=== PATIENT | female | born 1950 | race Caucasian/White ===

== ENCOUNTER 2020-06-18 08:20 | Day surgery (SDC) | payer MEDICARE, OTHER, SELFPAY ==
[2020-06-11 15:53] VITALS: BMI 31.3
--- NOTE | 2020-06-13 08:14 | MHC.SHP ---
Pre-Procedural Eval Section A The patient is an INPATIENT: No The History & Physical has been completed within 30 days and I have reviewed it.: Yes Section B Chief Complaint: Left Eye Cataract Allergies: Allergies Allergy/AdvReac Type Severity Reaction Status Date / Time cephalexin [From KEFLEX] Allergy Unknown SPACEY, Verified 06/11/20 15:52 dizzy, lightheaded Penicillins [PENICILLINS] Allergy Unknown Unknown, Verified 06/11/20 15:52 childhood occurrence Plan Diagnosis/Plan: Unchanged Patient has been examined and remains a candidate for the planned procedure
[2020-06-18 08:55] VITALS: BP 141/80; PULSE 84; RESP 16; TEMP 36.1; O2SAT 95
[2020-06-18] MEDS: Tetracaine HCl/PF 0.5% Oph Sol 4 ML DROPS 1 DROP EYE-LEFT (09:06)
[2020-06-18] MEDS: Lactated Ringers 500 ML 50 ML IV (09:06)
[2020-06-18] MEDS: Tropicamide 1 % Ophth Sol 3 ML BTL 1 DROP EYE-LEFT ×3 (09:08→09:17)
--- NOTE | 2020-06-18 09:17 | HO.ANESPROP2 ---
[facility] Past Medical History Medical History Arthritis Back pain Elevated cholesterol GERD (gastroesophageal reflux disease) Family History Family History Father Osteoporosis Heart disease Diabetes mellitus HTN (hypertension) CVD (cardiovascular disease) Mother Diabetes mellitus Surgical History Surgical History Deviated septum H/O right knee surgery History of cystoscopy History of esophagogastroduodenoscopy (EGD) History of tonsillectomy History of tumor Hx of colonoscopy Social History Social History Are you a primary special needs child caregiver to a significant other at home: No Do you presently have visiting nurse or other home services: No Alcohol intake: never Smoking Status: Never smoker Second Hand Smoke Exposure: No Use of substances other than those prescribed or required for medical reasons: No Have you been hit, kicked, punched, or otherwise hurt by someone within the past year? If so, by whom?: No Advance Directives: No Advance Directives Information Provided: No Advance Directives on File: No Recently lost weight without trying: No Meds Allergies Allergy/AdvReac Type Severity Reaction Status Date / Time cephalexin [From KEFLEX] Allergy Unknown SPACEY, Verified 06/11/20 15:52 dizzy, lightheaded Penicillins [PENICILLINS] Allergy Unknown Unknown, Verified 06/11/20 15:52 childhood occurrence Home Medications Medication Instructions Recorded Confirmed Type aspirin 81 mg tablet,delayed 81 mg PO DAILY 06/12/20 06/12/20 History release atorvastatin 20 mg tablet 20 mg PO DAILY 06/12/20 06/12/20 History flu vacc [id number](65yr up)-PF 240 ml IM 06/12/20 06/12/20 History mcg/0.7 mL intramuscular syringe ibuprofen 200 mg tablet 400 mg PO Q8H 06/12/20 06/12/20 History omega-3 fatty acids-vitamin E PO 06/12/20 06/12/20 History omeprazole 20 mg capsule,delayed 20 mg PO DAILY 06/12/20 06/12/20 History release Exam Exam Date and Time: June 18, [id number] Height,Weight and Vital Signs: Height 4 ft 11 in Weight 70.307 kg Last Vital Signs Temp 97.0 F 06/18/20 08:55 Pulse 84 06/18/20 08:55 Resp 16 06/18/20 08:55 BP 141/80 H 06/18/20 08:55 Pulse Ox 95 06/18/20 08:55 Airway Mallampati Class: II (Caps laterally) TM Dist: >3cm Heart: RRR Lungs: CTA BL Assessment and Plan Assessment Anesthesia Assessment: Anesthesia Plan Discussed and Chart Reviewed Final Anesthetic Review NPO: Yes (Sip water with meds) Final Preanesthetic Review: No Changes in Pt Med Stat and Consent Obtained/Reviewed Patient Risk: Low Procedure Risk: Low Anesthetic Plan Anesthetic Plan: MAC: Disposition: Standard PACU
--- NOTE | 2020-06-18 10:36 | HO.PNOPHT ---
Ophthalmology Procedure Procedure Date of Service: 06/18/20 Ophthalmology Viscoelastic: Healon Duet Dual Pack Pro Ophthalmology Lenses: TECVICENTA [id number] (23) Procedure Notes: PREOPERATIVE DIAGNOSIS: Decreased visual acuity left eye secondary to cataract POSTOPERATIVE DIAGNOSIS: Same PROCEDURE: Left cataract extraction with intraocular lens insertion SURGEON: Jet Samayoa M.D. ANESTHESIA: Topical/MAC ESTIMATED BLOOD LOSS: None COMPLICATIONS: None After obtaining informed consent, the patient was brought to the operation room suite and placed in the supine position. After adequate sedation per anesthesia, topical drops of Tetracaine were given to the left eye. The eye was then prepped and draped in the usual sterile fashion. The operating room microscope was then positioned over the operative eye and a lid speculum placed. A paracentesis was created. Viscoelastic was then instilled into the anterior chamber. A three plane incision was then created temporally, utilizing a 2.85 mm keratome. Capsulotomy forceps were then utilized to create a circular tear capsulotomy. Hydrodissection and hydrodelineation were carried out until adequate mobilization of the nucleus occurred. Phacoemulsification was then utilized to remove the dense central nucleus followed by removal of the cortical material utilizing the automated aspiration irrigation unit. Viscoat elastic was instilled into the posterior capsular bag followed by placement of a posterior chamber intraocular lens without difficulty. The residual Viscoat elastic was then removed utilizing the automated IA machine. The wound was check and found to be watertight. The patient tolerated the procedure well and the lid speculum was removed. Intracameral injection of Vigamox 0.1 mL followed by a subtenon injection of Kenalog-40 0.2 mL were administered. The patient will be seen in the a.m.
[2020-06-18 10:38] VITALS: BP 147/86; PULSE 80; RESP 18; TEMP 36.3; O2SAT 96
== END 2020-06-18 10:55 | disposition home or self-care (01) ==
PROVIDERS: PCP Internal Medicine; Visit Provider Ophthalmology
PROC: (CPT 66985; principal; 2020-06-18 10:20)
DX: H25.12 Age-related nuclear cataract, left eye (principal); H52.4 Presbyopia; Z83.511 Family history of glaucoma; E78.00 Pure hypercholesterolemia, unspecified; K21.9 Gastro-esophageal reflux disease without esophagitis; M19.90 Unspecified osteoarthritis, unspecified site; Z79.82 Long term (current) use of aspirin; Z79.899 Other long term (current) drug therapy; Z87.891 Personal history of nicotine dependence; Z88.0 Allergy status to penicillin; Z88.1 Allergy status to other antibiotic agents
CPT/HCPCS: 66984; J2250; J3010; J3300; V2632

== ENCOUNTER 2020-07-02 08:58 | Day surgery (SDC) | payer MEDICARE, OTHER, SELFPAY ==
[2020-06-11 15:57] VITALS: BMI 31.3
--- NOTE | 2020-06-25 14:33 | P.CONAN_ITS ---
Documented by User: Renetta Mckeon 06/25/20 14:34 HPI - Anesthesia Eval Consult details Narrative: 70yo F for Cataract Extraction 1st eye: Fent 25, Midaz 1 PMFSH Past Medical History Medical History Arthritis Back pain Elevated cholesterol GERD (gastroesophageal reflux disease) Family History Family History Father Osteoporosis Heart disease Diabetes mellitus HTN (hypertension) CVD (cardiovascular disease) Mother Diabetes mellitus Surgical History Surgical History Deviated septum H/O right knee surgery History of cystoscopy History of esophagogastroduodenoscopy (EGD) History of tonsillectomy History of tumor Hx of colonoscopy Social History Social History Are you a primary primary care sales representative to a significant other at home: No Do you presently have visiting nurse or other home services: No Alcohol intake: never Smoking Status: Never smoker Second Hand Smoke Exposure: No Use of substances other than those prescribed or required for medical reasons: No Have you been hit, kicked, punched, or otherwise hurt by someone within the past year? If so, by whom?: No Advance Directives: No Advance Directives Information Provided: No Advance Directives on File: No Recently lost weight without trying: No Meds Allergies Allergy/AdvReac Type Severity Reaction Status Date / Time cephalexin [From KEFLEX] Allergy Unknown SPACEY, Verified 06/11/20 15:52 dizzy, lightheaded Penicillins [PENICILLINS] Allergy Unknown Unknown, Verified 06/11/20 15:52 childhood occurrence Home Medications Medication Instructions Recorded Confirmed Type aspirin 81 mg tablet,delayed 81 mg PO DAILY 06/12/20 06/12/20 History release atorvastatin 20 mg tablet 20 mg PO DAILY 06/12/20 06/12/20 History flu vacc [id number](65yr up)-PF 240 ml IM 06/12/20 06/12/20 History mcg/0.7 mL intramuscular syringe ibuprofen 200 mg tablet 400 mg PO Q8H 06/12/20 06/12/20 History omega-3 fatty acids-vitamin E PO 06/12/20 06/12/20 History omeprazole 20 mg capsule,delayed 20 mg PO DAILY 06/12/20 06/12/20 History release Exam Exam Date and Time: June 25, 2020 1433 Height,Weight and Vital Signs: Height 4 ft 11 in Weight 70.307 kg Assessment and Plan Assessment Anesthesia Assessment: Chart Reviewed Documented by User: Court Coronel 07/02/20 10:01 [facility] Past Medical History Medical History Arthritis Back pain Elevated cholesterol GERD (gastroesophageal reflux disease) Family History Family History Father Osteoporosis Heart disease Diabetes mellitus HTN (hypertension) CVD (cardiovascular disease) Mother Diabetes mellitus Surgical History Surgical History Deviated septum H/O right knee surgery History of cystoscopy History of esophagogastroduodenoscopy (EGD) History of tonsillectomy History of tumor Hx of colonoscopy Social History Social History Are you a primary primary care sales representative to a significant other at home: No Do you presently have visiting nurse or other home services: No Alcohol intake: never Smoking Status: Never smoker Second Hand Smoke Exposure: No Use of substances other than those prescribed or required for medical reasons: No Have you been hit, kicked, punched, or otherwise hurt by someone within the past year? If so, by whom?: No Advance Directives: No Advance Directives Information Provided: No Advance Directives on File: No Recently lost weight without trying: No Meds Allergies Allergy/AdvReac Type Severity Reaction Status Date / Time cephalexin [From KEFLEX] Allergy Unknown SPACEY, Verified 06/11/20 15:52 dizzy, lightheaded Penicillins [PENICILLINS] Allergy Unknown Unknown, Verified 06/11/20 15:52 childhood occurrence Home Medications Medication Instructions Recorded Confirmed Type aspirin 81 mg tablet,delayed 81 mg PO DAILY 06/12/20 06/12/20 History release atorvastatin 20 mg tablet 20 mg PO DAILY 06/12/20 06/12/20 History flu vacc [id number](65yr up)-PF 240 ml IM 06/12/20 06/12/20 History mcg/0.7 mL intramuscular syringe ibuprofen 200 mg tablet 400 mg PO Q8H 06/12/20 06/12/20 History omega-3 fatty acids-vitamin E PO 06/12/20 06/12/20 History omeprazole 20 mg capsule,delayed 20 mg PO DAILY 06/12/20 06/12/20 History release Exam Airway Mallampati Class: II (Top caps) TM Dist: >3cm Neck ROM: Full Heart: RRR Lungs: CTA BL Assessment and Plan Assessment Anesthesia Assessment: Anesthesia Plan Discussed and Chart Reviewed Final Anesthetic Review NPO: Yes (Sip water with meds) ASA Class: II Final Preanesthetic Review: Meds/Allgs Chart Reviewed and Consent Obtained/Reviewed Patient Risk: Low Procedure Risk: Low Anesthetic Plan Anesthetic Plan: MAC: Disposition: Standard PACU
--- NOTE | 2020-06-26 13:10 | MHC.SHP ---
Pre-Procedural Eval Section A The patient is an INPATIENT: No The History & Physical has been completed within 30 days and I have reviewed it.: Yes Section B Chief Complaint: Right Eye Cataract Allergies: Allergies Allergy/AdvReac Type Severity Reaction Status Date / Time cephalexin [From KEFLEX] Allergy Unknown SPACEY, Verified 06/11/20 15:52 dizzy, lightheaded Penicillins [PENICILLINS] Allergy Unknown Unknown, Verified 06/11/20 15:52 childhood occurrence Plan Diagnosis/Plan: Unchanged Patient has been examined and remains a candidate for the planned procedure
[2020-07-02] MEDS: Tetracaine HCl/PF 0.5% Oph Sol 4 ML DROPS 1 DROP EYE-RIGHT (09:51)
[2020-07-02] MEDS: Tropicamide 1 % Ophth Sol 3 ML BTL 1 DROP EYE-RIGHT ×3 (09:53→10:01)
[2020-07-02] MEDS: Lactated Ringers 500 ML 50 ML IV (09:56)
--- NOTE | 2020-07-02 11:14 | HO.PNOPHT ---
Ophthalmology Procedure Procedure Date of Service: 07/02/20 Ophthalmology Viscoelastic: Healon Duet Dual Pack Pro Ophthalmology Lenses: TECVICENTA [id number] (23) Procedure Notes: PREOPERATIVE DIAGNOSIS: Decreased visual acuity right eye secondary to cataract POSTOPERATIVE DIAGNOSIS: Same PROCEDURE: Right cataract extraction with intraocular lens insertion SURGEON: Jet Samayoa M.D. ANESTHESIA: Topical/MAC ESTIMATED BLOOD LOSS: None COMPLICATIONS: None After obtaining informed consent, the patient was brought to the operating room suite and placed in the supine position. After adequate sedation per anesthesia, topical drops of Tetracaine were given to the right eye. The eye was then prepped and draped in the usual sterile fashion. The operating room microscope was then positioned over the operative eye and a lid speculum placed. A paracentesis was created. Viscoelastic was then instilled into the anterior chamber. A three plane incision was then created temporally, utilizing a 2.85 mm keratome. Capsulotomy forceps were then utilized to create a circular tear capsulotomy. Hydrodissection and hydrodelineation were carried out until adequate mobilization of the nucleus occurred. Phacoemulsification was then utilized to remove the dense central nucleus followed by removal of the cortical material utilizing the automated aspiration irrigation unit. Viscoelastic was instilled into the posterior capsular bag followed by placement of a posterior chamber intraocular lens without difficulty. The residual Viscoelastic was then removed utilizing the automated IA machine. The wound was checked and found to be watertight. The patient tolerated the procedure well and the lid speculum was removed. Intracameral injection of Vigamox 0.1 mL followed by a subtenon injection of Kenalog-40 0.2 mL were administered. The patient will be seen in the a.m.
[2020-07-02 11:15] VITALS: BP 137/83; PULSE 79; RESP 16; TEMP 36.5; O2SAT 96
== END 2020-07-02 11:27 | disposition home or self-care (01) ==
PROVIDERS: PCP Internal Medicine; Visit Provider Ophthalmology
PROC: (CPT 66985; principal; 2020-07-02 11:30)
DX: H25.11 Age-related nuclear cataract, right eye (principal); Z88.0 Allergy status to penicillin
CPT/HCPCS: 66984; J2250; J3010; J3300; V2632

== ENCOUNTER 2020-08-09 08:26 | Outpatient (REF) | payer MEDICARE, OTHER, SELFPAY ==
--- NOTE | 2020-08-09 08:32 | MM_ITS ---
EXAMINATION: MM SCREENING DIGITAL BREAST TOMOSYNTHESIS, BILATERAL CLINICAL INFORMATION: Screening. Asymptomatic. The lifetime risk of breast cancer based on the Tyrer-Cuzick Model is 3%. COMPARISON: Mammography: 08/04/2019, 07/16/2018, 07/10/2017 TECHNIQUE: Digital breast tomosynthesis is performed in both the craniocaudal and mediolateral oblique views along with computer-aided detection (CAD). Synthesized 2D images are generated from the tomosynthesis. FINDINGS: There are scattered areas of fibroglandular density (ACR BI-RADS breast composition Category b). There are no significant masses, abnormal calcifications, or other abnormalities. No significant changes. MM/MM tomosynthesis screening BI IMPRESSION: No mammographic evidence of malignancy. ASSESSMENT: BI-RADS 1: Negative RECOMMENDATION: Routine annual mammography screening. This patient's information was entered into a reminder system with a target due date for their next mammogram.
== END 2020-08-09 08:27 | disposition home or self-care (01) ==
LOC: HO.MAMMO 08:26
PROVIDERS: PCP Internal Medicine; Visit Provider Internal Medicine
DX: Z12.31 Encounter for screening mammogram for malignant neoplasm of breast (principal)
CPT/HCPCS: 77063; 77067

== ENCOUNTER 2020-09-06 09:12 | Outpatient (REF) | payer MEDICARE, OTHER, SELFPAY ==
[2020-09-06 10:32] LABS: Alanine Aminotransferase 24 U/L (0-31); Alkaline Phosphatase 123 U/L (39-117); Aspartate Amino Transferase 22 U/L (5-31); Bilirubin Direct 0.3 mg/dL (0.0-0.5); Bilirubin Total 0.8 mg/dL (0.0-1.0); Cholesterol 177 mg/dL; HDL Cholesterol 55 mg/dL; LDL Cholesterol Calculated 103 mg/dl; Total Protein 6.7 g/dL (6.5-8.0); Triglycerides 98 mg/dL
== END 2020-09-06 09:13 | disposition home or self-care (01) ==
LOC: HO.LAB 09:12
PROVIDERS: PCP Internal Medicine; Visit Provider Internal Medicine
DX: E78.9 Disorder of lipoprotein metabolism, unspecified (principal)
CPT/HCPCS: 36415; 80061; 80076

== ENCOUNTER 2020-11-16 10:50 | Outpatient (REF) | payer MEDICARE, OTHER, SELFPAY ==
--- NOTE | ~2020-11-16 | MM_ITS ---
EXAMINATION: BONE DENSITOMETRY CLINICAL INDICATION: Other specified disorders of bone density and structure, unspecified site. COMPARISON: Previous BD dated 10/21/2013 and baseline BD dated 11/16/2009. TECHNIQUE: Using a Volta DXA System (software version: 13.1) manufactured by [employer], dual-energy x-ray absorptiometry was performed of the lumbar spine and left hip. The images are of good technical quality. Summary results are attached. FINDINGS: AP SPINE L1-L3 (excluding L4): The data of L1-L4 has been changed to exclude the L4 vertebral body, because degenerative changes at this level may cause overestimation of lumbar spine density. Current: BMD 0.970 g/cm2, Z-score -0.2, T-score -1.7, osteopenia, 3.5% decrease from previous, 6.1% decrease from baseline (<5% change is not significant). Prior: BMD 1.005 g/cm2. Baseline: BMD 1.033 g/cm2. LEFT FEMUR, NECK: Current: BMD 0.748 g/cm2, Z-score -0.6, T-score -2.1, osteopenia. Prior: BMD 0.833 g/cm2. Baseline: BMD 0.813 g/cm2. LEFT FEMUR, TOTAL: Current: BMD 0.910 g/cm2, Z-score 0.5, T-score -0.8, normal, 7.8% decrease from previous, 6.9% decrease from baseline (<5% change is not significant). Prior: BMD 0.987 g/cm2. Baseline: BMD 0.977 g/cm2. IDENTIFIED RISK FACTORS: Low calcium intake. Early menopause, secondary osteoporosis. HISTORY OF FRACTURE: None listed. MEDICATIONS: None listed. MM/XR DEXA axial skeleton IMPRESSION: 1. DIAGNOSIS: Osteopenia based on the lowest T-score value of -2.1 in the femoral neck applying World Health Organization criteria. 2. 10-YEAR FRACTURE RISK PREDICTION, FRAX: Major osteoporotic fracture (clinical spine, forearm, hip or shoulder) 11.6%. Hip fracture 2.2%. 3. Treatment Recommendations: NOF guidelines recommend consideration for treatment in postmenopausal women and men age 50 and older presenting with the following: -A hip or vertebral (clinical or morphometric) fracture. -T-score less than or equal to -2.5 at the femoral neck or spine after appropriate evaluation to exclude secondary causes. -Low bone mass at the hip or spine and a 10-year fracture probability by FRAX of greater than or equal to 3% for hip fracture or greater than or equal to 20% for major osteoporotic fracture based on the [place] adapted WHO algorithm. 4. Other Recommendations: All treatment decisions require clinical judgment and consideration of individual patient factors, including patient preferences, comorbidities, previous drug use, risk factors not captured in the FRAX model (e.g. frailty, falls, vitamin D deficiency, increased bone turnover, interval significant decline in bone density) and possible under or overestimation of fracture risk by FRAX. Additional medical evaluation for secondary cause of low bone mineral density may be appropriate. FUTURE SCAN RECOMMENDATION: People with diagnosed cases of osteoporosis or at high risk for fracture should have regular bone mineral density tests. For patients eligible for Medicare, routine testing is allowed once every 2 years. The testing frequency can be increased to one year for patients who have rapidly progressing disease, those who are receiving or discontinuing medical therapy to restore bone mass, or have additional risk factors.
== END 2020-11-16 10:51 | disposition home or self-care (01) ==
LOC: HO.MAMMO 10:50
PROVIDERS: Visit Provider Internal Medicine
DX: Z13.820 Encounter for screening for osteoporosis (principal); M85.80 Other specified disorders of bone density and structure, unspecified site; Z78.0 Asymptomatic menopausal state
CPT/HCPCS: 77080

== ENCOUNTER 2021-04-02 09:51 | Outpatient (REF) | payer MEDICARE, OTHER, SELFPAY ==
[2021-04-02 10:55] LABS: Alanine Aminotransferase 32 U/L (0-31); Alkaline Phosphatase 136 U/L (39-117); Anion Gap 11 (12-20); Aspartate Amino Transferase 32 U/L (5-31); Blood Urea Nitrogen 16 mg/dL (9-16); Calcium 9.7 mg/dL (8.4-10.2); Carbon Dioxide 26 mmol/L (22-29); Chloride 109 mmol/L (96-108); Cholesterol 173 mg/dL; Estimated Glomerular Filt Rate > 60; Glucose Fasting 88 mg/dL (60-99); HDL Cholesterol 56 mg/dL; LDL Cholesterol Calculated 97 mg/dl; Potassium 4.6 mmol/L (3.3-5.1); Sodium 141 mmol/L (135-145); Total Protein 6.8 g/dL (6.5-8.0); Triglycerides 100 mg/dL
== END 2021-04-02 09:52 | disposition home or self-care (01) ==
LOC: HO.LAB 09:51
PROVIDERS: PCP Internal Medicine; Visit Provider Internal Medicine
DX: E78.9 Disorder of lipoprotein metabolism, unspecified (principal)
CPT/HCPCS: 36415; 80053; 80061

== ENCOUNTER 2021-08-19 14:00 | Outpatient (REF) | payer MEDICARE, OTHER, SELFPAY ==
[2021-08-19 14:50] LABS: COVID-19 Test Negative (Negative)
== END 2021-08-19 14:01 | disposition home or self-care (01) ==
LOC: HO.LAB 14:00
PROVIDERS: Visit Provider Internal Medicine
DX: Z20.822 Contact with and (suspected) exposure to COVID-19 (principal)
CPT/HCPCS: 87635; C9803

== ENCOUNTER 2021-09-18 13:51 | Outpatient (REF) | payer MEDICARE, OTHER, SELFPAY ==
--- NOTE | ~2021-09-18 | MM_ITS ---
EXAMINATION: MM SCREENING DIGITAL BREAST TOMOSYNTHESIS, BILATERAL CLINICAL INFORMATION: Screening. Asymptomatic. The lifetime risk of breast cancer based on the Tyrer-Cuzick Model is 3%. COMPARISON: Mammography: 08/09/2020, 08/04/2019, 07/16/2018 TECHNIQUE: Digital breast tomosynthesis is performed in both the craniocaudal and mediolateral oblique views along with computer-aided detection (CAD). Synthesized 2D images are generated from the tomosynthesis. FINDINGS: There are scattered areas of fibroglandular density (ACR BI-RADS breast composition Category b). There are no significant masses, abnormal calcifications, or other abnormalities. Parenchymal pattern is similar to prior studies. There is no developing density or architectural abnormality. The axilla and skin contours are unremarkable. No significant changes. MM/MM tomosynthesis screening BI IMPRESSION: No mammographic evidence of malignancy. ASSESSMENT: BI-RADS 1: Negative RECOMMENDATION: Routine annual mammography screening. This patient's information was entered into a reminder system with a target due date for their next mammogram.
== END 2021-09-18 13:52 | disposition home or self-care (01) ==
LOC: HO.MAMMO 13:51
PROVIDERS: Visit Provider Internal Medicine
DX: Z12.31 Encounter for screening mammogram for malignant neoplasm of breast (principal)
CPT/HCPCS: 77063; 77067

== ENCOUNTER 2021-10-11 10:30 | Outpatient (REF) | payer MEDICARE, OTHER, SELFPAY ==
[2021-10-11 12:28] LABS: Alanine Aminotransferase 39 U/L (0-31); Albumin Level 4.2 g/dL (3.5-5.0); Alkaline Phosphatase 152 U/L (39-117); Aspartate Amino Transferase 34 U/L (5-31); Bilirubin Direct 0.3 mg/dL (0.0-0.5); Bilirubin Total 0.8 mg/dL (0.0-1.0); Total Protein 7.4 g/dL (6.5-8.0)
== END 2021-10-11 10:31 | disposition home or self-care (01) ==
LOC: HO.HMGCLDS 10:30
PROVIDERS: Visit Provider Internal Medicine
DX: E78.9 Disorder of lipoprotein metabolism, unspecified (principal); K76.0 Fatty (change of) liver, not elsewhere classified
CPT/HCPCS: 36415; 80076

== ENCOUNTER 2021-12-02 09:10 | Outpatient (REF) | payer MEDICARE, OTHER, SELFPAY ==
--- NOTE | ~2021-12-02 | XR_ITS ---
EXAMINATION: XR SHOULDER, RIGHT CLINICAL INFORMATION: Right shoulder pain. COMPARISON: None TECHNIQUE: Four views of the right shoulder. FINDINGS: Moderate diffuse osteopenia. No fracture. Glenohumeral and acromioclavicular alignment is anatomic with normal joint space. No abnormal soft tissue calcifications. XR/XR shoulder RT min 2V IMPRESSION: Moderate diffuse osteopenia. No radiographic evidence of any acute fracture, subluxation, dislocation or soft tissue calcifications.
== END 2021-12-02 09:11 | disposition home or self-care (01) ==
LOC: HO.HMGCX 09:10
PROVIDERS: Visit Provider Emergency Medicine
DX: M25.511 Pain in right shoulder (principal)
CPT/HCPCS: 73030

== ENCOUNTER → 2021-12-06 11:44 | Outpatient (BNVA) | payer MEDICARE, OTHER, SELFPAY | PROVIDERS: PCP Internal Medicine; Visit Provider Orthopaedic Surgery | DX: M75.51 Bursitis of right shoulder (principal) | CPT/HCPCS: 99202 ==

== ENCOUNTER 2022-04-16 10:02 | Outpatient (REF) | payer MEDICARE, OTHER, SELFPAY ==
[2022-04-16 11:18] LABS: MANUAL DIFF FLAG NO
[2022-04-16 11:38] LABS: Basophils Absolute Auto 0.1 X10*3/uL (0.0-0.2); Basophils Percent Auto 1.5 % (0-2); Eosinophils Absolute Auto 0.4 X10*3/uL (0.0-0.4); Eosinophils Percent Auto 4.3 % (0-4); Hematocrit 44.7 % (37.0-47.0); Hemoglobin 14.4 g/dl (12.0-16.0); Imm Gran Abs Auto 0.02 X10*3/uL (0.00-0.03); Imm Gran Pct Auto 0.2 % (0.0-0.4); Lymphocytes Absolute Auto 1.9 X10*3/uL (1.2-4.9); Lymphocytes Percent Auto 21.4 % (20-40); Mean Corpuscular HGB Conc 32.2 g/dl (31.0-35.0); Mean Corpuscular Hemoglobin 28.3 pg (27.0-33.0); Mean Platelet Volume 10.5 fL (9.4-12.3); Monocytes Absolute Auto 0.8 X10*3/uL (0.1-1.2); Monocytes Percent Auto 9.3 % (2-11); Neutrophils Absolute Auto 5.6 x10*3/uL (2.0-8.3); Neutrophils Percent Auto 63.3 % (45-73); Platelet Count 436 X10*3/uL (160-400); Red Blood Count 5.08 X10*6/uL (4.20-5.50); Red Cell Distribution Width 13.2 % (11.0-16.0); White Blood Count 8.8 X10*3/uL (4.8-10.8)
[2022-04-16 14:34] LABS: Alanine Aminotransferase 36 U/L (0-31); Albumin Level 4.1 g/dL (3.5-5.0); Alkaline Phosphatase 153 U/L (39-117); Anion Gap 15 (12-20); Aspartate Amino Transferase 33 U/L (5-31); Bilirubin Total 0.4 mg/dL (0.0-1.0); Blood Urea Nitrogen 14 mg/dL (9-16); Calcium 9.6 mg/dL (8.4-10.2); Carbon Dioxide 25 mmol/L (22-29); Chloride 107 mmol/L (96-108); Cholesterol 190 mg/dL; Estimated Glomerular Filt Rate > 60; Glucose Fasting 94 mg/dL (60-99); HDL Cholesterol 56 mg/dL; LDL Cholesterol Calculated 115 mg/dl; Potassium 4.6 mmol/L (3.3-5.1); Sodium 142 mmol/L (135-145); Total Protein 7.1 g/dL (6.5-8.0); Triglycerides 97 mg/dL
[2022-04-16 14:51] LABS: TSH reflex Free T4 3.21 uIU/mL (0.32-4.0)
== END 2022-04-16 10:03 | disposition home or self-care (01) ==
LOC: HO.HMGCLDS 10:02
PROVIDERS: PCP Internal Medicine; Visit Provider Internal Medicine
DX: E78.9 Disorder of lipoprotein metabolism, unspecified (principal); H81.10 Benign paroxysmal vertigo, unspecified ear; K21.9 Gastro-esophageal reflux disease without esophagitis; R03.0 Elevated blood-pressure reading, without diagnosis of hypertension; Z91.09 Other allergy status, other than to drugs and biological substances
CPT/HCPCS: 36415; 80053; 80061; 84443; 85025

== ENCOUNTER 2022-10-01 08:42 | Outpatient (REF) | payer MEDICARE, OTHER, SELFPAY ==
--- NOTE | ~2022-10-01 | MM_ITS ---
EXAMINATION: MM SCREENING DIGITAL BREAST TOMOSYNTHESIS, BILATERAL CLINICAL INFORMATION: Screening. Asymptomatic. The lifetime risk of breast cancer based on the Tyrer-Cuzick Model is 3%. COMPARISON: Mammography: 09/18/2021, 08/09/2020, 08/04/2019, 07/16/2018 TECHNIQUE: Digital breast tomosynthesis is performed in both the craniocaudal and mediolateral oblique views along with computer-aided detection (CAD). Synthesized 2D images are generated from the tomosynthesis. Additional left MLO view is provided. FINDINGS: There are scattered areas of fibroglandular density (ACR BI-RADS breast composition Category b). There are no significant masses, abnormal calcifications, or other abnormalities. No architectural abnormality or developing density or significant change from prior studies. MM/MM tomosynthesis screening BI IMPRESSION: No mammographic evidence of malignancy. ASSESSMENT: BI-RADS 1: Negative RECOMMENDATION: Routine annual mammography screening. This patient's information was entered into a reminder system with a target due date for their next mammogram.
== END 2022-10-01 08:43 | disposition home or self-care (01) ==
LOC: HO.MAMMO 08:42
PROVIDERS: PCP Internal Medicine; Visit Provider Internal Medicine
DX: Z12.31 Encounter for screening mammogram for malignant neoplasm of breast (principal)
CPT/HCPCS: 77063; 77067

== ENCOUNTER → 2022-12-02 09:11 | Outpatient (BNVA) | payer MEDICARE, OTHER, SELFPAY | PROVIDERS: PCP Internal Medicine; Visit Provider Surgery Vascular Surgery | DX: I77.1 Stricture of artery (principal); I65.23 Occlusion and stenosis of bilateral carotid arteries | CPT/HCPCS: 99202 ==

== ENCOUNTER 2022-12-04 13:54 | Outpatient (REF) | payer MEDICARE, OTHER, SELFPAY ==
--- NOTE | ~2022-12-04 | US_ITS ---
EXAMINATION: US EXTRACRANIAL CAROTID DUPLEX, BILATERAL CLINICAL INFORMATION: Bilateral carotid stenoses. COMPARISON: None available. TECHNIQUE: Real-time ultrasound and Doppler techniques (integrating B-mode 2-D vascular images, Doppler spectral analysis and color-flow Doppler imaging) were utilized to interrogate the extracranial carotid arteries, the vertebral arteries and proximal subclavian arteries bilaterally. The degree of stenosis is determined by criteria similar to NASCET. FINDINGS: RIGHT SIDE: 1. There is minimal atherosclerotic plaque seen in the bifurcation/proximal ICA region. 2. The common carotid artery PSV proximally is 89 cm/s and distally 56 cm/s. 3. The proximal internal carotid artery velocities are 41 cm/s systolic and 14 cm/s diastolic. 4. The proximal external carotid artery PSV is 60 cm/s. 5. The vertebral artery shows antegrade flow. 6. The subclavian artery waveforms are normal. LEFT SIDE: 1. There is minimal atherosclerotic plaque seen in the bifurcation/proximal ICA region. 2. The common carotid artery PSV proximally is 96 cm/s and distally 60 cm/s. 3. The proximal internal carotid artery velocities are 49 cm/s systolic and 19 cm/s diastolic. 4. The proximal external carotid artery PSV is 56 cm/s. 5. The vertebral artery shows antegrade flow. 6. The subclavian artery waveforms are normal. US/US carotid duplex BI IMPRESSION: 1. RIGHT: Minimal, non-hemodynamically significant stenosis of the proximal right internal carotid artery corresponding to a 0-49% stenosis by velocity criteria. 2. LEFT: Minimal, non-hemodynamically significant stenosis of the proximal left internal carotid artery corresponding to a 0-49% stenosis by velocity criteria.
== END 2022-12-04 13:55 | disposition home or self-care (01) ==
LOC: HO.US 13:54
PROVIDERS: PCP Internal Medicine; Visit Provider Surgery Vascular Surgery
DX: I65.23 Occlusion and stenosis of bilateral carotid arteries (principal)
CPT/HCPCS: 93880

== ENCOUNTER 2022-12-16 09:04 | Outpatient (REF) | payer MEDICARE, OTHER, SELFPAY ==
[2022-12-16 11:10] LABS: MANUAL DIFF FLAG NO
[2022-12-16 11:38] LABS: Basophils Absolute Auto 0.1 X10*3/uL (0.0-0.2); Basophils Percent Auto 1.2 % (0-2); Eosinophils Absolute Auto 0.3 X10*3/uL (0.0-0.4); Eosinophils Percent Auto 3.6 % (0-4); Hematocrit 43.1 % (37.0-47.0); Hemoglobin 13.8 g/dl (12.0-16.0); Imm Gran Abs Auto 0.02 X10*3/uL (0.00-0.03); Imm Gran Pct Auto 0.2 % (0.0-0.4); Lymphocytes Absolute Auto 1.9 X10*3/uL (1.2-4.9); Lymphocytes Percent Auto 23.1 % (20-40); Mean Corpuscular Hemoglobin 28.5 pg (27.0-33.0); Mean Platelet Volume 10.7 fL (9.4-12.3); Monocytes Absolute Auto 0.8 X10*3/uL (0.1-1.2); Monocytes Percent Auto 9.2 % (2-11); Neutrophils Absolute Auto 5.1 x10*3/uL (2.0-8.3); Neutrophils Percent Auto 62.7 % (45-73); Platelet Count 426 X10*3/uL (160-400); Red Blood Count 4.84 X10*6/uL (4.20-5.50); Red Cell Distribution Width 13.5 % (11.0-16.0); White Blood Count 8.1 X10*3/uL (4.8-10.8)
[2022-12-16 11:51] LABS: Alanine Aminotransferase 24 U/L (0-31); Albumin Level 3.9 g/dL (3.5-5.0); Alkaline Phosphatase 113 U/L (39-117); Anion Gap 10 (12-20); Aspartate Amino Transferase 23 U/L (5-31); Bilirubin Total 0.8 mg/dL (0.0-1.0); Blood Urea Nitrogen 13 mg/dL (9-16); Calcium 9.5 mg/dL (8.4-10.2); Carbon Dioxide 27 mmol/L (22-29); Chloride 108 mmol/L (96-108); Cholesterol 181 mg/dL; Estimated Glomerular Filt Rate > 60; Glucose Fasting 98 mg/dL (60-99); HDL Cholesterol 58 mg/dL; LDL Cholesterol Calculated 104 mg/dl; Potassium 4.1 mmol/L (3.3-5.1); Sodium 141 mmol/L (135-145); Total Protein 6.7 g/dL (6.5-8.0); Triglycerides 97 mg/dL
== END 2022-12-16 09:05 | disposition home or self-care (01) ==
LOC: HO.HMGCLDS 09:04
PROVIDERS: PCP Internal Medicine; Visit Provider Internal Medicine
DX: E78.9 Disorder of lipoprotein metabolism, unspecified (principal); I10 Essential (primary) hypertension; K21.9 Gastro-esophageal reflux disease without esophagitis; R79.89 Other specified abnormal findings of blood chemistry; Z91.09 Other allergy status, other than to drugs and biological substances
CPT/HCPCS: 36415; 80053; 80061; 85025

== ENCOUNTER → 2022-12-18 15:06 | Outpatient (BNVA) | payer MEDICARE, OTHER, SELFPAY | PROVIDERS: PCP Internal Medicine; Visit Provider Surgery Vascular Surgery | DX: I77.1 Stricture of artery (principal); I65.23 Occlusion and stenosis of bilateral carotid arteries; Z79.82 Long term (current) use of aspirin; Z79.899 Other long term (current) drug therapy | CPT/HCPCS: 99212 ==

== ENCOUNTER 2023-04-07 09:07 | Outpatient (AMB) | payer MEDICARE, OTHER, SELFPAY ==
[2023-04-07 09:09] VITALS: BP 144/72; PULSE 83; O2SAT 98; BMI 33.7
--- NOTE | 2023-04-07 09:09 | MHC.PC.OV ---
Vital Signs 04/07/23 09:09 Height 4 ft 11 in Weight 167 lb BMI 33.7 BP 144/72 H Blood Pressure Location Rt brachial Position Sitting Pulse 83 Pulse Source Pulse Oximeter Pulse Oximetry (%) 98 Oxygen Delivery Method Room Air Intake Visit Reasons: 4 month follow up Allergies cephalexin [From KEFLEX] Allergy (Unknown, Verified 04/07/23 09:09) SPACEY, dizzy, lightheaded Penicillins [PENICILLINS] Allergy (Unknown, Verified 04/07/23 09:09) Unknown, childhood occurrence Medication List - Last Reconciled 04/07/23 by Nelson Brennan MD aspirin (Adult Aspirin Regimen) 81 mg PO DAILY atorvastatin 20 mg PO DAILY 90 days clobetasol 0.05% grams topical ibuprofen 400 mg PO Q8H losartan 25 mg PO DAILY 90 days omega-3 fatty acids-vitamin E ([place]-3 Fish Oil) PO omeprazole 20 mg PO DAILY 90 days Tobacco use date assessed: 04/07/23 Fall risk assessment: No Falls in past year Last assessed Fall Risk: 04/07/23 Dental Screening Dental Screen Date: 04/07/23 Did you have a dental visit in the last 12 months?: No Did you have a dental problem in the last 6 months where you did not have access to dental care?: No Was dental information given to patient?: No HPI 4 month follow up HPI Details Patient is 73-year-old female came in today for a follow-up appointment.? She is upset today because of our knee checking for process Blood pressure is slightly 144/72 right arm Vascular surgeon consultation from November of this year reviewed, patient have mild subclavian artery stenosis that is why her blood pressure is lower in left upper extremity and high in right upper extremity Patient was instructed to continue monitoring her blood pressure in right arm only. And she is to continue with aspirin and statin no other intervention is needed at this time. LFT elevation stable, we will be labs before next visit Lipid disorder:? Continue atorvastatin 20 mg and diet-controlled GERD is stable with omeprazole 20 mg. Continue aspirin BMI is elevated patient is trying to lose weight, we talked about intermittent fast patient also wanted to talk about liquid diet for 10 days I would recommend if she wants to do it she should start with only 3 days and then eat regular meals and then she can do another 3 or 5 days if she tolerates it. Follow-up 4 months [facility] Medical History Arthritis Back pain Dermatofibrosarcoma Elevated cholesterol GERD (gastroesophageal reflux disease) Surgical History Deviated septum H/O right knee surgery History of cystoscopy History of esophagogastroduodenoscopy (EGD) History of tonsillectomy History of tumor Hx of colonoscopy Family History Father Osteoporosis Heart disease Diabetes mellitus HTN (hypertension) CVD (cardiovascular disease) Mother Diabetes mellitus Other Substance use disorder Social History Housing: House Are you a primary health care / medical job titles to a significant other at home: No Do you presently have visiting nurse or other home services: No Alcohol intake: never Patient Tobacco Use Status: Former Tobacco user (50 years ago ) Years Smoked: 5 years e-Cigarette/Vaping Use: Never Used Second Hand Smoke Exposure: No service: No Current occupational status: retired Cognitive needs: No Hearing needs: Yes Vision needs: Yes Questionnaire PHQ-9 Over the last 2 weeks, how often have you been bothered by any of the following problems? 1. Little interest or pleasure in doing things: several days 2. Feeling down, depressed, or hopeless: several days 3. Trouble falling or staying asleep, or sleeping too much: several days 4. Feeling tired or having little energy: several days 5. Poor appetite or overeating: several days 6. Feeling bad about yourself - or that you are a failure or have let yourself or your family down: several days 7. Trouble concentrating on things, such as reading the newspaper or watching television: several days 8. Moving or speaking so slowly that other people could have noticed. Or the opposite - being so fidgety or restless that you have been moving around a lot more than usual: not at all 9. Thoughts that you would be better off or of hurting yourself in some way: not at all Total score: 7 Depression Screening Interpretation: Negative 01341 - PHQ-9 Billing: Yes Source: Developed by Drs. Genaro Kramer, Dustin Cadet and colleagues, with an educational shivani from [employer]. Thrive Questionnaire Date Thrive assessed: 10/11/21 AUDIT C Alcohol Use Questionnaire (AUDIT-C) 1. How often do you have a drink containing alcohol?: Never 3. How often do you have six or more drinks on one occasion?: Never Total Score: 0 Score Reviewed/Action Taken: Yes ANGELICA-7 AMB Questionnaire ANGELICA-7 Date ANGELICA - 7 assessed: 10/11/21 Source: Developed by Drs. Genaro Kramer, Dustin Cadet and colleagues, with an educational shivani from [employer]. Review of Systems Const Denies chills and Denies fever(s) ENT Denies epistaxis and Denies nasal discharge Card Denies chest pain Resp Denies chest congestion, Denies cough and Denies hemoptysis GI Denies diarrhea and Denies nausea Skin/Breast Denies rash Neuro Reports no additional complaints Psych Reports no additional complaints Endo Reports no additional complaints Physical exam (Primary Care) Vital Signs: Last Vital Signs Pulse 83 04/07/23 09:09 BP 144/72 H 04/07/23 09:09 Pulse Ox 98 04/07/23 09:09 Oxygen Delivery Method Room Air 04/07/23 09:09 BMI result Body Mass Index 33.7 Tobacco/Smoking Status: Tobacco use Status Tobacco use date assessed 04/07/23 04/07/23 09:15 Patient Tobacco Use Status Former Tobacco user (50 04/07/23 09:15 years ago ) e-Cigarette/Vaping Use Never Used 04/07/23 09:15 Depression Screening Interpretation: Negative Thrive Assessment: Date of Thrive Assessment Date Thrive assessed 10/11/21 04/07/23 09:15 Const General: cooperative, comfortable and no acute distress Orientation/consciousness: patient oriented x3 HENMT Head: Yes normocephalic Eyes General: appearance normal, both eyes and all related structures Neck Neck: Yes supple Resp Effort & Inspection: normal respiratory effort, no cough and no stridor Cardio Rhythm: regular rhythm Heart sounds: S1 normal heart sound present and S2 normal heart sound present Skin General skin exam: turgor normal Neuro General: patient oriented x3, tone normal and moves all extremities Extrem Right lower extremity: no edema Left lower extremity: no edema Assessment and Plan Assessment & Plan (1) Hypertension, essential: Code(s): I10 - Essential (primary) hypertension (2) Lipid disorder: Code(s): E78.9 - Disorder of lipoprotein metabolism, unspecified (3) Osteopenia: Code(s): M85.80 - Other specified disorders of bone density and structure, unspecified site (4) GERD (gastroesophageal reflux disease): Code(s): K21.9 - Gastro-esophageal reflux disease without esophagitis (5) Environmental allergies: Code(s): Z91.09 - Other allergy status, other than to drugs and biological substances (6) Subclavian arterial stenosis: Code(s): I77.1 - Stricture of artery (7) Peripheral artery disease: Code(s): I73.9 - Peripheral vascular disease, unspecified (8) LFT elevation: Code(s): R79.89 - Other specified abnormal findings of blood chemistry (9) Osteoarthritis: Code(s): M19.90 - Unspecified osteoarthritis, unspecified site Plan Patient is 73-year-old female came in today for a follow-up appointment.? She is upset today because of our knee checking for process Blood pressure is slightly 144/72 right arm Vascular surgeon consultation from November of this year reviewed, patient have mild subclavian artery stenosis that is why her blood pressure is lower in left upper extremity and high in right upper extremity Patient was instructed to continue monitoring her blood pressure in right arm only. And she is to continue with aspirin and statin no other intervention is needed at this time. LFT elevation stable, we will be labs before next visit Lipid disorder:? Continue atorvastatin 20 mg and diet-controlled GERD is stable with omeprazole 20 mg. Weight-bearing exercises for osteopenia She is taking ibuprofen every now and then for osteoarthritis in her joints Continue aspirin BMI is elevated patient is trying to lose weight, we talked about intermittent fast patient also wanted to talk about liquid diet for 10 days I would recommend if she wants to do it she should start with only 3 days and then eat regular meals and then she can do another 3 or 5 days if she tolerates it. Follow-up 4 months Orders: Orders Comprehensive [place]. Panel Fast Today E78.9 - Disorder of lipoprotein metabolism, unspecified, I10 - Essential (primary) hypertension, I73.9 - Peripheral vascular disease, unspecified, I77.1 - Stricture of artery, K21.9 - Gastro-esophageal reflux disease without esophagitis, M19.90 - Unspecified osteoarthritis, unspecified site, M85.80 - Other specified disorders of bone density and structure, unspecified site, R79.89 - Other specified abnormal findings of blood chemistry, Z91.09 - Other allergy status, other than to drugs and biological substances Lipid Panel Today E78.9 - Disorder of lipoprotein metabolism, unspecified, I10 - Essential (primary) hypertension, I73.9 - Peripheral vascular disease, unspecified, I77.1 - Stricture of artery, K21.9 - Gastro-esophageal reflux disease without esophagitis, M19.90 - Unspecified osteoarthritis, unspecified site, M85.80 - Other specified disorders of bone density and structure, unspecified site, R79.89 - Other specified abnormal findings of blood chemistry, Z91.09 - Other allergy status, other than to drugs and biological substances Complete Blood Count Auto Diff Today E78.9 - Disorder of lipoprotein metabolism, unspecified, I10 - Essential (primary) hypertension, I73.9 - Peripheral vascular disease, unspecified, I77.1 - Stricture of artery, K21.9 - Gastro-esophageal reflux disease without esophagitis, M19.90 - Unspecified osteoarthritis, unspecified site, M85.80 - Other specified disorders of bone density and structure, unspecified site, R79.89 - Other specified abnormal findings of blood chemistry, Z91.09 - Other allergy status, other than to drugs and biological substances Medications: Refilled atorvastatin 20 mg PO DAILY 90 tabs 1RF 90 days E78.9 - Disorder of lipoprotein metabolism, unspecified losartan 25 mg PO DAILY 90 tabs 1RF 90 days omeprazole 20 mg PO DAILY 90 caps 1RF 90 days Coding Level of Care Code Est Pt Level 4 (35290) Diagnoses Hypertension, essential I10 Lipid disorder E78.9 Osteopenia M85.80 GERD (gastroesophageal reflux disease) K21.9 Environmental allergies Z91.09 Subclavian arterial stenosis I77.1 Peripheral artery disease I73.9 LFT elevation R79.89 Osteoarthritis M19.90
== END 2023-04-07 10:32 | disposition home or self-care (01) ==
PROVIDERS: Visit Provider Internal Medicine
DX: I10 Essential (primary) hypertension (principal); K21.9 Gastro-esophageal reflux disease without esophagitis; Z91.09 Other allergy status, other than to drugs and biological substances; I77.1 Stricture of artery; I73.9 Peripheral vascular disease, unspecified; E78.9 Disorder of lipoprotein metabolism, unspecified; M85.80 Other specified disorders of bone density and structure, unspecified site; R79.89 Other specified abnormal findings of blood chemistry; M19.90 Unspecified osteoarthritis, unspecified site
CPT/HCPCS: 99214

== ENCOUNTER 2023-04-08 08:21 | Outpatient (REF) | payer MEDICARE, OTHER, SELFPAY ==
[2023-04-08 08:49] LABS: MANUAL DIFF FLAG NO
[2023-04-08 08:56] LABS: Basophils Absolute Auto 0.1 X10*3/uL (0.0-0.2); Basophils Percent Auto 0.9 % (0-2); Eosinophils Absolute Auto 0.3 X10*3/uL (0.0-0.4); Eosinophils Percent Auto 2.9 % (0-4); Hematocrit 42.6 % (37.0-47.0); Hemoglobin 13.8 g/dl (12.0-16.0); Imm Gran Abs Auto 0.02 X10*3/uL (0.00-0.03); Imm Gran Pct Auto 0.2 % (0.0-0.4); Lymphocytes Absolute Auto 1.7 X10*3/uL (1.2-4.9); Lymphocytes Percent Auto 18.4 % (20-40); Mean Corpuscular HGB Conc 32.4 g/dl (31.0-35.0); Mean Corpuscular Hemoglobin 28.5 pg (27.0-33.0); Mean Platelet Volume 9.8 fL (9.4-12.3); Monocytes Absolute Auto 1.1 X10*3/uL (0.1-1.2); Monocytes Percent Auto 11.5 % (2-11); Neutrophils Absolute Auto 6.1 x10*3/uL (2.0-8.3); Neutrophils Percent Auto 66.1 % (45-73); Platelet Count 374 X10*3/uL (160-400); Red Blood Count 4.84 X10*6/uL (4.20-5.50); Red Cell Distribution Width 13.4 % (11.0-16.0); White Blood Count 9.2 X10*3/uL (4.8-10.8)
[2023-04-08 09:45] LABS: Alanine Aminotransferase 26 U/L (0-31); Albumin Level 3.9 g/dL (3.5-5.0); Alkaline Phosphatase 140 U/L (39-117); Anion Gap 10 (12-20); Aspartate Amino Transferase 28 U/L (5-31); Bilirubin Total 0.6 mg/dL (0.0-1.0); Blood Urea Nitrogen 15 mg/dL (9-16); Calcium 9.6 mg/dL (8.4-10.2); Carbon Dioxide 26 mmol/L (22-29); Chloride 110 mmol/L (96-108); Cholesterol 174 mg/dL (<200); Estimated Glomerular Filt Rate > 60; Glucose Fasting 93 mg/dL (60-99); HDL Cholesterol 52 mg/dL (>40); LDL Cholesterol Calculated 104 mg/dL (<100); Potassium 4.1 mmol/L (3.3-5.1); Sodium 142 mmol/L (135-145); Total Protein 7.1 g/dL (6.5-8.0); Triglycerides 91 mg/dL (<150)
== END 2023-04-08 08:22 | disposition home or self-care (01) ==
LOC: HO.LAB 08:21
PROVIDERS: PCP Internal Medicine; Visit Provider Internal Medicine
DX: I10 Essential (primary) hypertension (principal); E78.9 Disorder of lipoprotein metabolism, unspecified; I73.9 Peripheral vascular disease, unspecified; I77.1 Stricture of artery; K21.9 Gastro-esophageal reflux disease without esophagitis; M19.90 Unspecified osteoarthritis, unspecified site; M85.80 Other specified disorders of bone density and structure, unspecified site; R79.89 Other specified abnormal findings of blood chemistry; Z91.09 Other allergy status, other than to drugs and biological substances
CPT/HCPCS: 36415; 80053; 80061; 85025

== ENCOUNTER 2023-05-12 09:10 | Day surgery (SDC) | payer MEDICARE, OTHER, SELFPAY ==
--- NOTE | 2023-05-08 11:21 | HO.ANESPROP2 ---
Documented by User: Renetta Mckeon NP 05/08/23 11:24 HPI - Anesthesia Eval Consult details Narrative: 73yo F for Colonoscopy PMFSH Active Problems Active Problems: All Active Problems (Updated 05/08/23 @ 11:14 by Juli Fuentes RN) Carotid stenosis, bilateral (Acute) Subclavian arterial stenosis (Acute) Peripheral artery disease (Acute) LFT elevation (Acute) Stress and adjustment reaction (Acute) Hypertension, essential (Acute) Elevated blood pressure reading (Acute) Subacromial bursitis of right shoulder joint (Acute) Arthritis (Acute) Benign positional vertigo (Acute) Lipid disorder (Acute) Encounter for general adult medical examination with abnormal findings (Acute) Fatty liver (Acute) Environmental allergies (Acute) Osteoarthritis (Acute) Osteopenia (Acute) Lipid disorder (Acute) Pre-op evaluation (Acute) GERD (gastroesophageal reflux disease) (Acute) Past Medical History Medical History Left arm pain HTN (hypertension) Diverticulosis Dermatofibrosarcoma Arthritis Back pain GERD (gastroesophageal reflux disease) Elevated cholesterol Family History Family History Father Osteoporosis Heart disease Diabetes mellitus HTN (hypertension) CVD (cardiovascular disease) Mother Diabetes mellitus Other Substance use disorder Surgical History Surgical History History of arthroscopy of left shoulder History of cystoscopy History of esophagogastroduodenoscopy (EGD) Hx of colonoscopy History of tumor Deviated septum History of tonsillectomy H/O right knee surgery Social History Social History Housing: House Are you a primary care team assistant to a significant other at home: No Do you presently have visiting nurse or other home services: No Alcohol intake: never Patient Tobacco Use Status: Former Tobacco user Years Smoked: 5 years e-Cigarette/Vaping Use: Never Used Second Hand Smoke Exposure: No Are you DNR?: No Advance Directives: No Advance Directives Information Provided: Yes Nutrition Risks: No Nutritional Risk service: No Current occupational status: retired Cognitive needs: No Hearing needs: Yes Vision needs: Yes Meds Allergies Allergy/AdvReac Type Severity Reaction Status Date / Time cephalexin [From KEFLEX] Allergy Unknown SPACEY, Verified 04/07/23 09:09 dizzy, lightheaded Penicillins [PENICILLINS] Allergy Unknown Unknown, Verified 04/07/23 09:09 childhood occurrence Home Medications Medication Instructions Recorded Confirmed Last Taken Type aspirin 81 mg tablet,delayed 81 mg PO DAILY 06/12/20 04/07/23 05/04/23 History release (Adult Aspirin Regimen) ibuprofen 200 mg tablet 400 mg PO Q8H 06/12/20 04/07/23 05/04/23 History omega-3 fatty acids-vitamin E PO 06/12/20 04/07/23 05/04/23 History [[place]-3 Fish Oil] clobetasol 0.05 % topical ointment g topical 08/19/22 04/07/23 Unknown History Exam Exam Date and Time: May 08, 2023 1121 Pertinent Lab Results Pertinent Lab Results: Laboratory Tests 04/08/23 08:48 WBC 9.2 Hgb 13.8 Hct 42.6 Plt Count 374 Sodium 142 Potassium 4.1 Chloride 110 H Carbon Dioxide 26 BUN 15 Creatinine 0.87 Narrative Narrative: US carotid duplex BI 12/2022 IMPRESSION: 1. RIGHT: Minimal, non-hemodynamically significant stenosis of the proximal right internal carotid artery corresponding to a 0-49% stenosis by velocity criteria. 2. LEFT: Minimal, non-hemodynamically significant stenosis of the proximal left internal carotid artery corresponding to a 0-49% stenosis by velocity criteria. Assessment and Plan Assessment Anesthesia Assessment: Chart Reviewed Documented by User: Severino Munson MD 05/12/23 11:20 [facility] Past Medical History Medical History Left arm pain HTN (hypertension) Diverticulosis Dermatofibrosarcoma Arthritis Back pain GERD (gastroesophageal reflux disease) Elevated cholesterol Family History Family History Father Osteoporosis Heart disease Diabetes mellitus HTN (hypertension) CVD (cardiovascular disease) Mother Diabetes mellitus Other Substance use disorder Family history of problems with anesthesia: No Surgical History Surgical History History of arthroscopy of left shoulder History of cystoscopy History of esophagogastroduodenoscopy (EGD) Hx of colonoscopy History of tumor Deviated septum History of tonsillectomy H/O right knee surgery History of Problems with Anesthesia: No Social History Social History Housing: House Are you a primary care team assistant to a significant other at home: No Do you presently have visiting nurse or other home services: No Alcohol intake: never Patient Tobacco Use Status: Former Tobacco user Years Smoked: 5 years e-Cigarette/Vaping Use: Never Used Second Hand Smoke Exposure: No Are you DNR?: No Advance Directives: No Advance Directives Information Provided: Yes Nutrition Risks: No Nutritional Risk service: No Current occupational status: retired Cognitive needs: No Hearing needs: Yes Vision needs: Yes Meds Allergies Allergy/AdvReac Type Severity Reaction Status Date / Time cephalexin [From KEFLEX] Allergy Unknown SPACEY, Verified 04/07/23 09:09 dizzy, lightheaded Penicillins [PENICILLINS] Allergy Unknown Unknown, Verified 04/07/23 09:09 childhood occurrence Home Medications Medication Instructions Recorded Confirmed Last Taken Type aspirin 81 mg tablet,delayed 81 mg PO DAILY 06/12/20 04/07/23 05/04/23 History release (Adult Aspirin Regimen) ibuprofen 200 mg tablet 400 mg PO Q8H 06/12/20 04/07/23 05/04/23 History omega-3 fatty acids-vitamin E PO 06/12/20 04/07/23 05/04/23 History [[place]-3 Fish Oil] clobetasol 0.05 % topical ointment g topical 08/19/22 04/07/23 Unknown History Exam Airway Mallampati Class: III TM Dist: >3cm Neck ROM: Full Loose/Missing/Broken Teeth: No Assessment and Plan Assessment Anesthesia Assessment: Anesthesia Plan Discussed Final Anesthetic Review Family History of Problems with Anesthesia: No History of Problems with Anesthesia: No NPO: Yes ASA Class: III Final Preanesthetic Review: No Changes in Pt Med Stat, Meds/Allgs Chart Reviewed, Consent Obtained/Reviewed and Anes Risks/Benef Reviewed Patient Risk: Intermediate Procedure Risk: Low Anesthetic Plan Anesthetic Plan: MAC: Disposition: Standard PACU
[2023-05-12 09:41] VITALS: BMI 31.7
[2023-05-12 09:48] VITALS: BP 154/87; PULSE 100; RESP 20; TEMP 36.6; O2SAT 98
--- NOTE | 2023-05-12 10:53 | MHC.SHP ---
Pre-Procedural Eval Section A Date of Service: 05/12/23 The patient is an INPATIENT: No Changes since office visit: No Cold of Flu in the past 2 weeks, No New Medical Problems, No Changes in Medication and No Patient answered all questions The History & Physical has been completed within 30 days and I have reviewed it.: Yes Section B Chief Complaint: screening Allergies: Allergies Allergy/AdvReac Type Severity Reaction Status Date / Time cephalexin [From KEFLEX] Allergy Unknown SPACEY, Verified 04/07/23 09:09 dizzy, lightheaded Penicillins [PENICILLINS] Allergy Unknown Unknown, Verified 04/07/23 09:09 childhood occurrence Plan I have reviewed the history and physical and performed a pertinent physical examination on my patient. No changes have occurred unless specified. Time Spent With Patient Time: Total time managing care of this patient today ____ minutes.
--- NOTE | 2023-05-12 11:24 | PM.OP ---
Brief Operative Note Date of Service: 05/12/23 Pre-op diagnosis: screening Post-op diagnosis: same Surgeon: Teodoro Garcia MD Anesthesia: MAC Was an Junior Estimator used for this Procedure?: No Estimated blood loss (mL): 2 Pathology: other Condition: stable Disposition: PACU
[2023-05-12 11:28] VITALS: BP 112/44; PULSE 86; RESP 18; TEMP 36.2; O2SAT 95
[2023-05-12 11:43] VITALS: BP 114/68; PULSE 76; RESP 18; TEMP 36.2; O2SAT 97
== END 2023-05-12 12:36 | disposition home or self-care (01) ==
PROVIDERS: PCP Internal Medicine; Visit Provider Internal Medicine Gastroenterology
PROC: 0DJD8ZZ Inspection of Lower Intestinal Tract, Via Natural or Artificial Opening Endoscopic (ICD-10-PCS; CPT 45378; principal; 2023-05-12 10:40)
DX: Z12.11 Encounter for screening for malignant neoplasm of colon (principal); K63.5 Polyp of colon; K57.30 Diverticulosis of large intestine without perforation or abscess without bleeding; K64.8 Other hemorrhoids; K62.89 Other specified diseases of anus and rectum; K21.9 Gastro-esophageal reflux disease without esophagitis; I10 Essential (primary) hypertension; M19.90 Unspecified osteoarthritis, unspecified site; J30.2 Other seasonal allergic rhinitis; Z79.899 Other long term (current) drug therapy; Z79.82 Long term (current) use of aspirin; Z88.8 Allergy status to other drugs, medicaments and biological substances; Z98.890 Other specified postprocedural states
CPT/HCPCS: 45385; 88305

== ENCOUNTER 2023-08-11 09:23 | Outpatient (AMB) | payer MEDICARE, OTHER, SELFPAY ==
[2023-08-11 09:35] VITALS: BP 128/76; PULSE 81; O2SAT 96; BMI 31.4
--- NOTE | 2023-08-11 09:35 | A.OFFPC_ITS ---
Vital Signs 08/11/23 09:35 Height 5 ft 0.5 in Weight 163 lb 4 oz BMI 31.4 BP 128/76 Blood Pressure Location Rt brachial Position Sitting Pulse 81 Pulse Source Pulse Oximeter Pulse Oximetry (%) 96 Oxygen Delivery Method Room Air Intake Visit Reasons: 4 month fu Allergies cephalexin [From KEFLEX] Allergy (Unknown, Verified 08/11/23 09:38) SPACEY, dizzy, lightheaded Penicillins [PENICILLINS] Allergy (Unknown, Verified 08/11/23 09:38) Unknown, childhood occurrence Medication List - Last Reconciled 08/11/23 by Nelson Brennan MD aspirin (Adult Aspirin Regimen) 81 mg PO DAILY atorvastatin 20 mg PO DAILY 90 days clobetasol 0.05% grams topical ibuprofen 400 mg PO Q8H losartan 25 mg PO DAILY 90 days omega-3 fatty acids-vitamin E ([place]-3 Fish Oil) PO omeprazole 20 mg PO DAILY 90 days Tobacco use date assessed: 08/11/23 Fall risk assessment: No Falls in past year Last assessed Fall Risk: 08/11/23 Dental Screening Dental Screen Date: 08/11/23 Did you have a dental visit in the last 12 months?: No Did you have a dental problem in the last 6 months where you did not have access to dental care?: No Was dental information given to patient?: No HPI 4 month fu HPI Details Patient is 73-year-old female came in today for a follow-up appointment.? Blood pressure is well controlled patient have mild subclavian artery stenosis that is why her blood pressure is lower in left upper extremity and high in right upper extremity Patient was instructed to continue monitoring her blood pressure in right arm only. And she is to continue with aspirin and statin no other intervention is needed at this time. She has been evaluated by vascular specialist already LFT elevation stable, labs to be done Lipid disorder:? Continue atorvastatin 20 mg and diet-controlled GERD is stable with omeprazole 20 mg. Weight-bearing exercises for osteopenia She is taking ibuprofen every now and then for osteoarthritis in her joints Continue aspirin BMI is elevated patient is trying to lose weight Follow-up 4 months [facility] Medical History Left arm pain HTN (hypertension) Diverticulosis Dermatofibrosarcoma Arthritis Back pain GERD (gastroesophageal reflux disease) Elevated cholesterol Surgical History History of arthroscopy of left shoulder History of cystoscopy History of esophagogastroduodenoscopy (EGD) Hx of colonoscopy History of tumor Deviated septum History of tonsillectomy H/O right knee surgery Family History Father Osteoporosis Heart disease Diabetes mellitus HTN (hypertension) CVD (cardiovascular disease) Mother Diabetes mellitus Other Substance use disorder Social History Housing: House Are you a primary child care lead teacher to a significant other at home: No Do you presently have visiting nurse or other home services: No Alcohol intake: never Patient Tobacco Use Status: Former Tobacco user Years Smoked: 5 years e-Cigarette/Vaping Use: Never Used Second Hand Smoke Exposure: No service: No Current occupational status: retired Cognitive needs: No Hearing needs: Yes Vision needs: Yes Questionnaire Thrive Questionnaire Date Thrive assessed: 10/11/21 AUDIT C Alcohol Use Questionnaire (AUDIT-C) 1. How often do you have a drink containing alcohol?: Never 3. How often do you have six or more drinks on one occasion?: Never Total Score: 0 Score Reviewed/Action Taken: Yes ANGELICA-7 AMB Questionnaire ANGELICA-7 Date ANGELICA - 7 assessed: 10/11/21 Source: Developed by Drs. Genaro Kramer, Cira Nino, Dustin Malagon and colleagues, with an educational shivani from [employer]. Review of Systems Const Denies chills and Denies fever(s) ENT Denies epistaxis and Denies nasal discharge Card Denies chest pain Resp Denies chest congestion, Denies cough and Denies hemoptysis GI Denies diarrhea and Denies nausea Skin/Breast Denies rash Neuro Reports no additional complaints Psych Reports no additional complaints Endo Reports no additional complaints Physical exam (Primary Care) Vital Signs: Last Vital Signs Pulse 81 08/11/23 09:35 BP 128/76 08/11/23 09:35 Pulse Ox 96 08/11/23 09:35 Oxygen Delivery Method Room Air 08/11/23 09:35 BMI result Body Mass Index 31.4 Tobacco/Smoking Status: Tobacco use Status Tobacco use date assessed 08/11/23 08/11/23 09:39 Patient Tobacco Use Status Former Tobacco user 08/11/23 09:37 e-Cigarette/Vaping Use Never Used 08/11/23 09:37 Thrive Assessment: Date of Thrive Assessment Date Thrive assessed 10/11/21 08/11/23 09:37 Const General: cooperative, comfortable and no acute distress Orientation/consciousness: patient oriented x3 HENMT Head: Yes normocephalic Eyes General: appearance normal, both eyes and all related structures Neck Neck: Yes supple Resp Effort & Inspection: normal respiratory effort, no cough and no stridor Cardio Rhythm: regular rhythm Heart sounds: S1 normal heart sound present and S2 normal heart sound present Skin General skin exam: turgor normal Neuro General: patient oriented x3, tone normal and moves all extremities Extrem Right lower extremity: no edema Left lower extremity: no edema Assessment and Plan Assessment & Plan (1) Hypertension, essential: Code(s): I10 - Essential (primary) hypertension (2) Peripheral artery disease: Code(s): I73.9 - Peripheral vascular disease, unspecified (3) LFT elevation: Code(s): R79.89 - Other specified abnormal findings of blood chemistry (4) Lipid disorder: Code(s): E78.9 - Disorder of lipoprotein metabolism, unspecified (5) Environmental allergies: Code(s): Z91.09 - Other allergy status, other than to drugs and biological substances (6) GERD (gastroesophageal reflux disease): Code(s): K21.9 - Gastro-esophageal reflux disease without esophagitis Qualifiers: Esophagitis presence: without esophagitis Qualified Code(s): K21.9 - Gastro-esophageal reflux disease without esophagitis (7) Osteopenia: Code(s): M85.80 - Other specified disorders of bone density and structure, unspecified site Qualifiers: Osteopenia location: unspecified Qualified Code(s): M85.80 - Other specified disorders of bone density and structure, unspecified site (8) Subclavian arterial stenosis: Code(s): I77.1 - Stricture of artery (9) Osteoarthritis: Code(s): M19.90 - Unspecified osteoarthritis, unspecified site Qualifiers: Osteoarthritis location: unspecified site Osteoarthritis type: primary Qualified Code(s): M19.91 - Primary osteoarthritis, unspecified site Plan Patient is 73-year-old female came in today for a follow-up appointment.? Blood pressure is well controlled patient have mild subclavian artery stenosis that is why her blood pressure is lower in left upper extremity and high in right upper extremity Patient was instructed to continue monitoring her blood pressure in right arm only. And she is to continue with aspirin and statin no other intervention is needed at this time. She has been evaluated by vascular specialist already LFT elevation stable, labs to be done Lipid disorder:? Continue atorvastatin 20 mg and diet-controlled GERD is stable with omeprazole 20 mg. Weight-bearing exercises for osteopenia She is taking ibuprofen every now and then for osteoarthritis in her joints Continue aspirin BMI is elevated patient is trying to lose weight Follow-up 4 months Orders: Orders Complete Blood Count Auto Diff Today E78.9 - Disorder of lipoprotein metabolism, unspecified, I10 - Essential (primary) hypertension, I73.9 - Peripheral vascular disease, unspecified, K21.9 - Gastro-esophageal reflux disease without esophagitis, R79.89 - Other specified abnormal findings of blood chemistry, Z91.09 - Other allergy status, other than to drugs and biological substances Comprehensive [place]. Panel Fast Today I10 - Essential (primary) hypertension, R79.89 - Other specified abnormal findings of blood chemistry Lipid Panel Today I10 - Essential (primary) hypertension, R79.89 - Other specified abnormal findings of blood chemistry Coding Level of Care Code Est Pt Level 4 (10475) Diagnoses Hypertension, essential I10 Peripheral artery disease I73.9 LFT elevation R79.89 Lipid disorder E78.9 Environmental allergies Z91.09 Gastroesophageal reflux disease without esophagitis K21.9 Esophagitis presence: without esophagitis Osteopenia, unspecified location M85.80 Osteopenia location: unspecified Subclavian arterial stenosis I77.1 Primary osteoarthritis, unspecified site M19.91 Osteoarthritis location: unspecified site Osteoarthritis type: primary
== END 2023-08-11 12:36 | disposition home or self-care (01) ==
PROVIDERS: PCP Internal Medicine; Visit Provider Internal Medicine
DX: I10 Essential (primary) hypertension (principal); I73.9 Peripheral vascular disease, unspecified; I77.1 Stricture of artery; R79.89 Other specified abnormal findings of blood chemistry; E78.9 Disorder of lipoprotein metabolism, unspecified; Z91.09 Other allergy status, other than to drugs and biological substances; K21.9 Gastro-esophageal reflux disease without esophagitis; M85.80 Other specified disorders of bone density and structure, unspecified site; M19.91 Primary osteoarthritis, unspecified site
CPT/HCPCS: 99214

== ENCOUNTER 2023-08-11 09:57 | Outpatient (REF) | payer MEDICARE, OTHER, SELFPAY ==
[2023-08-11 12:55] LABS: MANUAL DIFF FLAG NO
[2023-08-11 13:13] LABS: Basophils Absolute Auto 0.2 X10*3/uL (0.0-0.2); Basophils Percent Auto 1.6 % (0-2); Eosinophils Absolute Auto 0.5 X10*3/uL (0.0-0.4); Eosinophils Percent Auto 5.4 % (0-4); Hematocrit 41.1 % (37.0-47.0); Imm Gran Abs Auto 0.03 X10*3/uL (0.00-0.03); Imm Gran Pct Auto 0.3 % (0.0-0.4); Lymphocytes Percent Auto 21.8 % (20-40); Mean Corpuscular HGB Conc 31.6 g/dl (31.0-35.0); Mean Corpuscular Hemoglobin 28.3 pg (27.0-33.0); Mean Corpuscular Volume 89.5 fL (80.0-98.0); Mean Platelet Volume 10.5 fL (9.4-12.3); Monocytes Absolute Auto 0.8 X10*3/uL (0.1-1.2); Monocytes Percent Auto 8.9 % (2-11); Neutrophils Absolute Auto 5.8 x10*3/uL (2.0-8.3); Platelet Count 426 X10*3/uL (160-400); Red Blood Count 4.59 X10*6/uL (4.20-5.50); Red Cell Distribution Width 13.3 % (11.0-16.0); White Blood Count 9.3 X10*3/uL (4.8-10.8)
[2023-08-11 13:26] LABS: Alanine Aminotransferase 27 U/L (0-31); Albumin Level 3.8 g/dL (3.5-5.0); Alkaline Phosphatase 131 U/L (39-117); Anion Gap 10 (12-20); Aspartate Amino Transferase 25 U/L (5-31); Bilirubin Total 0.4 mg/dL (0.0-1.0); Blood Urea Nitrogen 13 mg/dL (9-16); Calcium 9.3 mg/dL (8.4-10.2); Carbon Dioxide 28 mmol/L (22-29); Chloride 109 mmol/L (96-108); Cholesterol 179 mg/dL (<200); Estimated Glomerular Filt Rate > 60; Glucose Fasting 92 mg/dL (60-99); HDL Cholesterol 49 mg/dL (>40); LDL Cholesterol Calculated 106 mg/dL (<100); Potassium 3.8 mmol/L (3.3-5.1); Sodium 143 mmol/L (135-145); Total Protein 6.9 g/dL (6.5-8.0); Triglycerides 122 mg/dL (<150)
== END 2023-08-11 09:58 | disposition home or self-care (01) ==
LOC: HO.HMGCLDS 09:57
PROVIDERS: PCP Internal Medicine; Visit Provider Internal Medicine
DX: R79.89 Other specified abnormal findings of blood chemistry (principal); I10 Essential (primary) hypertension; I73.9 Peripheral vascular disease, unspecified; E78.9 Disorder of lipoprotein metabolism, unspecified; Z91.09 Other allergy status, other than to drugs and biological substances; K21.9 Gastro-esophageal reflux disease without esophagitis
CPT/HCPCS: 36415; 80053; 80061; 85025

== ENCOUNTER 2023-10-26 10:15 | Outpatient (REF) | payer MEDICARE, OTHER, SELFPAY ==
--- NOTE | ~2023-10-26 | MM_ITS ---
EXAMINATION: MM SCREENING DIGITAL BREAST TOMOSYNTHESIS, BILATERAL CLINICAL INFORMATION: Screening. Asymptomatic. COMPARISON: Mammography: 10/01/2022, 09/18/2021, 08/09/2020, 08/04/2019, 07/16/2018 TECHNIQUE: Digital breast tomosynthesis is performed in both the craniocaudal and mediolateral oblique views along with computer-aided detection (CAD). Synthesized 2D images are generated from the tomosynthesis. FINDINGS: There are scattered areas of fibroglandular density (ACR BI-RADS breast composition Category b). There are no suspicious masses, suspicious grouped calcifications, or areas of architectural distortion in either breast. The parenchymal pattern is stable from prior exams. No axillary or skin abnormality. MM/MM tomosynthesis screening BI IMPRESSION: No mammographic evidence of malignancy. ASSESSMENT: BI-RADS BI-RADS 1 - Negative RECOMMENDATION: Routine annual mammography screening. 1 year F/U This examination should not preclude the clinical evaluation of a suspicious palpable abnormality. This patient's information was entered into a reminder system with a target due date for their next mammogram.
== END 2023-10-26 10:16 | disposition home or self-care (01) ==
LOC: HO.MAMMO 10:15
PROVIDERS: PCP Internal Medicine; Visit Provider Internal Medicine
DX: Z12.31 Encounter for screening mammogram for malignant neoplasm of breast (principal)
CPT/HCPCS: 77063; 77067

== ENCOUNTER → 2023-10-26 10:45 | Outpatient (BNV) | payer MEDICARE, OTHER, SELFPAY | PROVIDERS: PCP Internal Medicine; Visit Provider Radiology Diagnostic Radiology | DX: Z12.31 Encounter for screening mammogram for malignant neoplasm of breast (principal) | CPT/HCPCS: 77063; 77067 ==

== ENCOUNTER 2023-12-29 12:17 | Outpatient (AMB) | payer MEDICARE, OTHER, SELFPAY ==
[2023-12-29 12:29] VITALS: BP 130/72; PULSE 81; O2SAT 95; BMI 31.3
--- NOTE | 2023-12-29 12:29 | A.OFFVIS_ITS ---
Intake Vital Signs 12/29/23 12:29 Height 5 ft 0.5 in Weight 163 lb 2 oz BMI 31.3 BP 130/72 Blood Pressure Location Rt brachial Position Sitting Pulse 81 Pulse Source Pulse Oximeter Pulse Oximetry (%) 95 Oxygen Delivery Method Room Air Intake Visit Reasons: SWV Allergies cephalexin [From KEFLEX] Allergy (Unknown, Verified 12/29/23 12:33) SPACEY, dizzy, lightheaded Penicillins [PENICILLINS] Allergy (Unknown, Verified 12/29/23 12:33) Unknown, childhood occurrence Medication List - Last Reconciled 12/29/23 by Nelson Brennan MD aspirin (Adult Aspirin Regimen) 81 mg PO DAILY atorvastatin 20 mg PO DAILY 90 days clobetasol 0.05% grams topical ibuprofen 400 mg PO Q8H losartan 25 mg PO DAILY 90 days omega-3 fatty acids-vitamin E ([place]-3 Fish Oil) PO omeprazole 20 mg PO DAILY 90 days Do you need a note to return to daycare/school/sports/work: No HPI SWV HPI Details Patient is 73-year-old female with a history of lipid disorder, hypertension, GERD, carotid artery stenosis, subclavian artery stenosis, peripheral vascular disease, LFT, hypertension, osteopenia, environmental allergies and multiple joint osteoarthritis came in today for her regular follow-up appointment and Medicare wellness visit Patient has been doing well, taking all her medications No side effects Labs were done August of this year, due for another set of lab, order placed to be done today Follow-up 4 months HPI Comments History of Present Illness Details AWV Medical/social history reviewed Past medical history reviewed [place] of care / care team list updated Surgical/ hospitalization history reviewed Current medications including OTC and supplements reviewed Family history reviewed Tobacco controlled form updated Alcohol use form updated Illicit drug use in social history reviewed Current diagnosis of depression ?screening updated Appropriate PHQ 2/PHQ-9 completed . Vital signs reviewed Alcohol tobacco drug use reviewed and discussed . MMSE completed . ? Fall risk: ?Assessed Fall history: ?None Have you had any falls with injury in the past year?? No Have you had 2 or more falls in the past year?? No Fall risk assessment completed Home safety discussed with the patient Functional ability assessed and discussed and documented Activities of daily living reviewed and appropriate actions taken . HRA filled out by the patient and reviewed by provider and scanned . Appropriate written screening schedule established . Any health advise needed provided . Advance care planning discussed with the patient , necessary paperwork filled Examination IPPE/AWE: Balance intact Romberg intact Tandem walk intact walk-in turn intact rise from sit to stand intact . ?Hearing ?whisper test failed . Medication list reviewed, patient is stable on medications All other providers patient is seeing discussed and noted . [facility] Medical History Left arm pain HTN (hypertension) Diverticulosis Dermatofibrosarcoma Arthritis Back pain GERD (gastroesophageal reflux disease) Elevated cholesterol Surgical History History of arthroscopy of left shoulder History of cystoscopy History of esophagogastroduodenoscopy (EGD) Hx of colonoscopy History of tumor Deviated septum History of tonsillectomy H/O right knee surgery Family History Father Osteoporosis Heart disease Diabetes mellitus HTN (hypertension) CVD (cardiovascular disease) Mother Diabetes mellitus Other Substance use disorder Social History Housing: House Are you a primary care consultant to a significant other at home: No Do you presently have visiting nurse or other home services: No Alcohol intake: never Patient Tobacco Use Status: Former Tobacco user Years Smoked: 5 years e-Cigarette/Vaping Use: Never Used Second Hand Smoke Exposure: No service: No Current occupational status: retired Cognitive needs: No Hearing needs: Yes Vision needs: Yes Questionnaire Medicare Wellness Checkup [age] What gender do you identify with?: female During the past 4 weeks, how much have you been bothered by emotional problems s uch as feeling anxious, depressed, irritable, sad or downhearted, and blue?: slightly During the past 4 weeks, has your physical & emotional health limited your social activities with family, friends, neighbors, or groups?: not at all During the past 4 weeks, how much bodily pain have you generally had?: mild pain During the past 4 weeks, was someone available to help you if you needed & wanted help?: yes, quite a bit During the past 4 weeks, what was the hardest physical activity you could do for at least 2 minutes?: heavy Can you get to places out of walking distance without help? (For eg., can you travel alone on buses, taxis or drive your car?): Yes Can you go shopping for groceries or clothes without someone's help?: Yes Can you prepare your own meals?: Yes Can you do your housework without help?: Yes Because of any health problems, do you need the help of another person with your personal care needs such as eating, bathing, dressing or getting around the house?: No Can you handle your own money without help?: Yes During the past 4 weeks, how would you rate your health in general?: very good During the past 4 weeks how have things been going for you?: pretty well Are you having difficulties driving your car?: sometimes Do you always fasten your seat belt when you are in a car?: yes, usually During past 4 weeks, have you been bothered by the following: never: Falling or dizzy when standing up, Sexual problems?, Trouble eating well? and Problems using the telephone? and seldom: Teeth or denture problems? and Tiredness or fatigue? Have you fallen 2 or more times in the past year?: No Are you afraid of falling?: No Are you a smoker?: no During the past 4 weeks, how many drinks of wine, beer, or other alcoholic karma erages did you have?: no alcohol at all Do you exercise for about 20 minutes 3 or more times a week?: yes, all the time Have you been given information to help with the following?: no: Hazards in your house that might hurt you? and no: Keeping track of your medications? How often do you have trouble taking medicines the way you have been told to take them?: I always take medicine as prescribed How confident are you that you can control & manage most of your health problems?: somewhat confident What is your race?: White Mini Mental State Exam (MMSE) Orientation What is the (year) (season) (date) (day) (month)?: year, season, date, day and month Where are we (state) (county) (town or city) (hospital) (floor)?: state, county, town or city, hospital/clinic and floor Score Score: 10 Activity of Daily Living Bathing - sponge bath, tub bath or shower: receives no assistance (gets in/out by self, if usual bathing means Dressing - getting clothes from closets & drawers, including inner/outer garments & fasteners.: gets clothes & gets completely dressed without help Toileting - going to the 'toilet room' for urine/bowel elimination & cleaning self/arranging clothes: goes to toilet room, cleans self, arranges clothes without help Transfer: moves in & out of bed and chair without help (may use support object) Continence: controls urination/bowel movements completely by self Feeding: feeds self without help Total Score: 0 Information obtained from: patient Using telephone: independent Traveling: independent Shopping: independent Preparing meals: independent Housework: independent Taking medicine: independent Managing money: independent PHQ-9 Over the last 2 weeks, how often have you been bothered by any of the following problems? 1. Little interest or pleasure in doing things: not at all 2. Feeling down, depressed, or hopeless: not at all 3. Trouble falling or staying asleep, or sleeping too much: several days 4. Feeling tired or having little energy: not at all 5. Poor appetite or overeating: not at all 6. Feeling bad about yourself - or that you are a failure or have let yourself or your family down: not at all 7. Trouble concentrating on things, such as reading the newspaper or watching television: several days 8. Moving or speaking so slowly that other people could have noticed. Or the opposite - being so fidgety or restless that you have been moving around a lot more than usual: not at all 9. Thoughts that you would be better off or of hurting yourself in some way: not at all Total score: 2 Depression Screening Interpretation: Negative Depression Screening Done: Yes 45914 - PHQ-9 Billing: Yes Source: Developed by Drs. Genaro Kramer, Cira Nino, Dustin Malagon and colleagues, with an educational shivani from [employer]. Review of Systems Const Denies chills and Denies fever(s) ENT Denies epistaxis and Denies nasal discharge Card Denies chest pain Resp Denies chest congestion, Denies cough and Denies hemoptysis GI Denies diarrhea and Denies nausea Skin/Breast Denies rash Neuro Reports no additional complaints Psych Reports no additional complaints Endo Reports no additional complaints Physical Exam Vital Signs: Last Vital Signs Pulse 81 12/29/23 12:29 BP 130/72 12/29/23 12:29 Pulse Ox 95 12/29/23 12:29 Oxygen Delivery Method Room Air 12/29/23 12:29 BMI result Body Mass Index 31.3 Const General: cooperative, comfortable and no acute distress Orientation/consciousness: patient oriented x3 HEENT Head: Yes normocephalic Eyes General: appearance normal, both eyes and all related structures Neck Other: Supple Neck: Yes supple Resp Effort & Inspection: normal respiratory effort, no cough and no stridor Cardio Rhythm: regular rhythm Heart sounds: S1 normal heart sound present and S2 normal heart sound present Skin General skin exam: turgor normal Neuro Other: Motor sensory intact General: patient oriented x3, tone normal and moves all extremities Extrem Other: No lower extremity swelling. Right lower extremity: no edema Left lower extremity: no edema Psych Other: Normal effect, speech clear Assessment & Plan Assessment & Plan (1) Medicare annual wellness visit, subsequent: Code(s): Z00.00 - Encounter for general adult medical examination without abnormal findi ngs (2) Hypertension, essential: Code(s): I10 - Essential (primary) hypertension (3) Lipid disorder: Code(s): E78.9 - Disorder of lipoprotein metabolism, unspecified (4) Environmental allergies: Code(s): Z91.09 - Other allergy status, other than to drugs and biological substances (5) Lipid disorder: Code(s): E78.9 - Disorder of lipoprotein metabolism, unspecified (6) GERD (gastroesophageal reflux disease): Code(s): K21.9 - Gastro-esophageal reflux disease without esophagitis Qualifiers: Esophagitis presence: without esophagitis Qualified Code(s): K21.9 - Gastro-esophageal reflux disease without esophagitis (7) LFT elevation: Code(s): R79.89 - Other specified abnormal findings of blood chemistry (8) Carotid stenosis, bilateral: Code(s): I65.23 - Occlusion and stenosis of bilateral carotid arteries (9) Subclavian arterial stenosis: Code(s): I77.1 - Stricture of artery (10) Peripheral artery disease: Code(s): I73.9 - Peripheral vascular disease, unspecified (11) Fatty liver: Code(s): K76.0 - Fatty (change of) liver, not elsewhere classified Plan Patient is 73-year-old female with a history of lipid disorder, hypertension, GERD, carotid artery stenosis, subclavian artery stenosis, peripheral vascular disease, LFT, hypertension, osteopenia, environmental allergies and multiple joint osteoarthritis came in today for her regular follow-up appointment and Medicare wellness visit Patient has been doing well, taking all her medications No side effects Labs were done August of this year, due for another set of lab, order placed to be done today Follow-up 4 months Orders: Orders Comprehensive Met. Panel Today E78.9 - Disorder of lipoprotein metabolism, unspecified, I10 - Essential (primary) hypertension, I65.23 - Occlusion and stenosis of bilateral carotid arteries, I73.9 - Peripheral vascular disease, unspecified, I77.1 - Stricture of artery, K21.9 - Gastro-esophageal reflux disea se without esophagitis, K76.0 - Fatty (change of) liver, not elsewhere classified, R79.89 - Other specified abnormal findings of blood chemistry, Z91.09 - Other allergy status, other than to drugs and biological substances Complete Blood Count Auto Diff Today E78.9 - Disorder of lipoprotein metabolism, unspecified, I10 - Essential (primary) hypertension, I65.23 - Occlusion and stenosis of bilateral carotid arteries, I73.9 - Peripheral vascular disease, unspecified, I77.1 - Stricture of artery, K21.9 - Gastro- esophageal reflux disease without esophagitis, K76.0 - Fatty (change of) liver, not elsewhere classified, R79.89 - Other specified abnormal findings of blood chemistry, Z91.09 - Other allergy status, other than to drugs and biological substances Quality Reporting (2019) Depression/Bipolar (159/160/161/177) PHQ-9: Total score: 2 Coding Level of Care Code Medicare Subsequent (G0439) Est Pt Level 3 (18878) Diagnoses Medicare annual wellness visit, subsequent Z00.00 Hypertension, essential I10 Lipid disorder E78.9 Environmental allergies Z91.09 Gastroesophageal reflux disease without esophagitis K21.9 Esophagitis presence: without esophagitis LFT elevation R79.89 Carotid stenosis, bilateral I65.23 Subclavian arterial stenosis I77.1 Peripheral artery disease I73.9 Fatty liver K76.0
== END 2023-12-29 12:55 | disposition home or self-care (01) ==
PROVIDERS: PCP Internal Medicine; Visit Provider Internal Medicine
DX: Z00.00 Encounter for general adult medical examination without abnormal findings (principal); E78.9 Disorder of lipoprotein metabolism, unspecified; I77.1 Stricture of artery; I73.9 Peripheral vascular disease, unspecified; I10 Essential (primary) hypertension; Z91.09 Other allergy status, other than to drugs and biological substances; K21.9 Gastro-esophageal reflux disease without esophagitis; R79.89 Other specified abnormal findings of blood chemistry; I65.23 Occlusion and stenosis of bilateral carotid arteries; K76.0 Fatty (change of) liver, not elsewhere classified
CPT/HCPCS: 99213; G0439

== ENCOUNTER 2023-12-29 13:00 | Outpatient (REF) | payer MEDICARE, OTHER, SELFPAY ==
[2023-12-29 16:00] LABS: MANUAL DIFF FLAG NO
[2023-12-29 16:07] LABS: Basophils Absolute Auto 0.1 X10*3/uL (0.0-0.2); Basophils Percent Auto 1.2 % (0-2); Eosinophils Absolute Auto 0.3 X10*3/uL (0.0-0.4); Eosinophils Percent Auto 2.5 % (0-4); Imm Gran Abs Auto 0.04 X10*3/uL (0.00-0.03); Imm Gran Pct Auto 0.4 % (0.0-0.4); Lymphocytes Absolute Auto 2.6 X10*3/uL (1.2-4.9); Lymphocytes Percent Auto 23.3 % (20-40); Mean Corpuscular HGB Conc 31.8 g/dl (31.0-35.0); Mean Corpuscular Hemoglobin 28.6 pg (27.0-33.0); Mean Corpuscular Volume 89.8 fL (80.0-98.0); Mean Platelet Volume 10.7 fL (9.4-12.3); Monocytes Absolute Auto 1.1 X10*3/uL (0.1-1.2); Monocytes Percent Auto 9.6 % (2-11); Neutrophils Absolute Auto 6.9 x10*3/uL (2.0-8.3); Platelet Count 456 X10*3/uL (160-400); Red Cell Distribution Width 13.4 % (11.0-16.0)
[2023-12-29 16:26] LABS: Alanine Aminotransferase 24 U/L (0-31); Alkaline Phosphatase 117 U/L (39-117); Anion Gap 11 (12-20); Aspartate Amino Transferase 24 U/L (5-31); Bilirubin Total 0.4 mg/dL (0.0-1.0); Blood Urea Nitrogen 14 mg/dL (9-16); Calcium 9.8 mg/dL (8.4-10.2); Carbon Dioxide 26 mmol/L (22-29); Chloride 109 mmol/L (96-108); Estimated Glomerular Filt Rate > 60; Glucose Random 87 mg/dL (60-115); Potassium 4.3 mmol/L (3.3-5.1); Sodium 142 mmol/L (135-145); Total Protein 7.4 g/dL (6.5-8.0)
== END 2023-12-29 13:01 | disposition home or self-care (01) ==
LOC: HO.HMGCLDS 13:00
PROVIDERS: PCP Internal Medicine; Visit Provider Internal Medicine
DX: R79.89 Other specified abnormal findings of blood chemistry (principal); I65.23 Occlusion and stenosis of bilateral carotid arteries; I77.1 Stricture of artery; I73.9 Peripheral vascular disease, unspecified; I10 Essential (primary) hypertension; E78.9 Disorder of lipoprotein metabolism, unspecified; K76.0 Fatty (change of) liver, not elsewhere classified; K21.9 Gastro-esophageal reflux disease without esophagitis; Z91.09 Other allergy status, other than to drugs and biological substances
CPT/HCPCS: 36415; 80053; 85025

== ENCOUNTER 2024-04-05 09:51 | Outpatient (AMB) | payer MEDICARE, OTHER, SELFPAY ==
[2024-04-05 09:57] VITALS: BP 126/78; PULSE 93; O2SAT 96; BMI 31.4
--- NOTE | 2024-04-05 09:57 | MHC.PC.OV ---
Vital Signs 04/05/24 09:57 Height 5 ft 0.5 in Weight 163 lb 6 oz BMI 31.4 BP 126/78 Blood Pressure Location Rt brachial Position Sitting Pulse 93 Pulse Source Pulse Oximeter Pulse Oximetry (%) 96 Oxygen Delivery Method Room Air Intake Visit Reasons: 4M F/U Allergies cephalexin [From KEFLEX] Allergy (Unknown, Verified 04/05/24 09:58) SPACEY, dizzy, lightheaded Penicillins [PENICILLINS] Allergy (Unknown, Verified 04/05/24 09:58) Unknown, childhood occurrence Medication List - Last Reconciled 04/05/24 by Nelson Brennan MD aspirin (Adult Aspirin Regimen) 81 mg PO DAILY atorvastatin 20 mg PO DAILY 90 days clobetasol 0.05% grams topical ibuprofen 400 mg PO Q8H losartan 25 mg PO DAILY 90 days omega-3 fatty acids-vitamin E ([place]-3 Fish Oil) PO omeprazole 20 mg PO DAILY 90 days Tobacco use date assessed: 04/05/24 Fall risk assessment: No Falls in past year Last assessed Fall Risk: 04/05/24 Dental Screening Dental Screen Date: 04/05/24 Did you have a dental visit in the last 12 months?: Yes Did you have a dental problem in the last 6 months where you did not have access to dental care?: No Was dental information given to patient?: Patient has dentist HPI 4M F/U HPI Details Patient is 74-year-old female came in today for a follow-up appointment.? Patient has developed tendinitis right thumb Upon further questioning she tells me that she has been holding her phone in her right hand a lot Explained to patient that it is because of that she has developed strain of her tendon in the thumb The treatment will be to stop the causative posture. Blood pressure is well controlled patient have mild subclavian artery stenosis that is why her blood pressure is lower in left upper extremity and high in right upper extremity Patient was instructed to continue monitoring her blood pressure in right arm only. and she is to continue with aspirin and statin no other intervention is needed at this time. She has been evaluated by vascular specialist already LFT elevation stable, labs to be done Lipid disorder:? Continue atorvastatin 20 mg and diet-controlled GERD is stable with omeprazole 20 mg. Weight-bearing exercises for osteopenia She is taking ibuprofen every now and then for osteoarthritis in her joints Continue aspirin BMI is elevated patient is trying to lose weight Follow-up 4 months [facility] Medical History Left arm pain HTN (hypertension) Diverticulosis Dermatofibrosarcoma Arthritis Back pain GERD (gastroesophageal reflux disease) Elevated cholesterol Surgical History History of arthroscopy of left shoulder History of cystoscopy History of esophagogastroduodenoscopy (EGD) Hx of colonoscopy History of tumor Deviated septum History of tonsillectomy H/O right knee surgery Family History Father Osteoporosis Heart disease Diabetes mellitus HTN (hypertension) CVD (cardiovascular disease) Mother Diabetes mellitus Other Substance use disorder Social History Housing: House Are you a primary nurse care manager to a significant other at home: No Do you presently have visiting nurse or other home services: No Alcohol intake: never Patient Tobacco Use Status: Former Tobacco user Years Smoked: 5 years e-Cigarette/Vaping Use: Never Used Second Hand Smoke Exposure: No service: No Current occupational status: retired Cognitive needs: No Hearing needs: Yes Vision needs: Yes Questionnaire PHQ-9 Over the last 2 weeks, how often have you been bothered by any of the following problems? 1. Little interest or pleasure in doing things: not at all 2. Feeling down, depressed, or hopeless: not at all 3. Trouble falling or staying asleep, or sleeping too much: several days 4. Feeling tired or having little energy: several days 5. Poor appetite or overeating: not at all 6. Feeling bad about yourself - or that you are a failure or have let yourself or your family down: not at all 7. Trouble concentrating on things, such as reading the newspaper or watching television: not at all 8. Moving or speaking so slowly that other people could have noticed. Or the opposite - being so fidgety or restless that you have been moving around a lot more than usual: not at all 9. Thoughts that you would be better off or of hurting yourself in some way: not at all Total score: 2 Depression Screening Interpretation: Negative Depression Screening Done: Yes 44695 - PHQ-9 Billing: Yes Source: Developed by Drs. Genaro Kramer, Cira Nino, Dustin Malagon and colleagues, with an educational shivani from [employer]. Thrive Questionnaire Date Thrive assessed: 03/30/24 I am a: Patient What is your living situation today?: I have a steady place to live Within the past 12 months, did the food you bought not last and you didn't have the money to get more?: Never true Within the past 12 months, did you worry whether your food would run out before you got money to buy more?: I choose not to answer this question Do you have trouble paying for medicines?: No Do you have trouble getting transportation to medical appointments?: No Do you have trouble paying your heating and electricity bill?: Yes Do you have trouble taking care of your child, family member or friend?: No Do you have trouble with day-to-day activities such as bathing, preparing meals, shopping, managing finances, etc.?: No Are you currently unemployed and looking for a job?: No Are you interested in more education?: No Please select the resources that you would like help with: None Currently or been in a relationship where the following occur: I choose not to answer THRIVE Score: 1 AUDIT C Alcohol Use Questionnaire (AUDIT-C) 1. How often do you have a drink containing alcohol?: Never 3. How often do you have six or more drinks on one occasion?: Never Total Score: 0 Score Reviewed/Action Taken: Yes ANGELICA-7 AMB Questionnaire ANGELICA-7 Date ANGELICA - 7 assessed: 04/05/24 Feeling nervous, anxious, or on edge: 0 = Not at all Not being able to stop or control worryin = Not at all Worrying too much about different things: 0 = Not at all Trouble relaxin = Not at all Being so restless that it is hard to sit still: 0 = Not at all Becoming easily annoyed or irritable: 0 = Not at all Feeling afraid as if something awful might happen: 0 = Not at all Total ANGELICA-7 score (0-4 normal; 5-9 mild; 10-14 moderate; 15-21 severe): 0 Source: Developed by Cira Ledesma, Dustin Malagon and colleagues, with an educational shivani from [employer]. ANGELICA-7 Assessment Billing ANGELICA-7 Assessment Tool: ANGELICA-7 Assessment 34344 Review of Systems Const Denies chills and Denies fever(s) ENT Denies epistaxis and Denies nasal discharge Card Denies chest pain Resp Denies chest congestion, Denies cough and Denies hemoptysis GI Denies diarrhea and Denies nausea Skin/Breast Denies rash Neuro Reports no additional complaints Psych Reports no additional complaints Endo Reports no additional complaints Physical exam (Primary Care) Vital Signs: Last Vital Signs Pulse 93 04/05/24 09:57 BP 126/78 04/05/24 09:57 Pulse Ox 96 04/05/24 09:57 Oxygen Delivery Method Room Air 04/05/24 09:57 BMI result Body Mass Index 31.4 Tobacco/Smoking Status: Tobacco use Status Tobacco use date assessed 04/05/24 04/05/24 10:00 Patient Tobacco Use Status Former Tobacco user 04/05/24 10:00 e-Cigarette/Vaping Use Never Used 04/05/24 10:00 PHQ-9: PHQ-9 Score PHQ-9: Total score 2 04/05/24 10:12 Depression Screening Interpretation: Negative Thrive Assessment: Date of Thrive Assessment Date Thrive assessed 03/30/24 04/05/24 10:00 Currently or been in a relationship where the following occur: I choose not to answer Const General: cooperative, comfortable and no acute distress Orientation/consciousness: patient oriented x3 HENMT Head: Yes normocephalic Eyes General: appearance normal, both eyes and all related structures Neck Neck: Yes supple Resp Effort & Inspection: normal respiratory effort, no cough and no stridor Cardio Rhythm: regular rhythm Heart sounds: S1 normal heart sound present and S2 normal heart sound present GI Other: Abdominal exam is benign Skin General skin exam: turgor normal Neuro General: patient oriented x3, tone normal and moves all extremities Extrem Right lower extremity: no edema Left lower extremity: no edema Assessment and Plan Assessment & Plan (1) Hypertension, essential: Code(s): I10 - Essential (primary) hypertension (2) Thumb tendonitis: Code(s): M77.8 - Other enthesopathies, not elsewhere classified (3) Irritable bowel syndrome: Code(s): K58.9 - Irritable bowel syndrome without diarrhea Qualifiers: Irritable bowel syndrome type: with diarrhea Qualified Code(s): K58.0 - Irritable bowel syndrome with diarrhea (4) GERD (gastroesophageal reflux disease): Code(s): K21.9 - Gastro-esophageal reflux disease without esophagitis Qualifiers: Esophagitis presence: without esophagitis Qualified Code(s): K21.9 - Gastro-esophageal reflux disease without esophagitis (5) Lipid disorder: Code(s): E78.9 - Disorder of lipoprotein metabolism, unspecified (6) Osteopenia: Code(s): M85.80 - Other specified disorders of bone density and structure, unspecified site Qualifiers: Osteopenia location: unspecified Qualified Code(s): M85.80 - Other specified disorders of bone density and structure, unspecified site (7) Osteoarthritis: Code(s): M19.90 - Unspecified osteoarthritis, unspecified site Qualifiers: Osteoarthritis location: unspecified site Osteoarthritis type: primary Qualified Code(s): M19.91 - Primary osteoarthritis, unspecified site (8) Peripheral artery disease: Code(s): I73.9 - Peripheral vascular disease, unspecified (9) LFT elevation: Code(s): R79.89 - Other specified abnormal findings of blood chemistry (10) Lipid disorder: Code(s): E78.9 - Disorder of lipoprotein metabolism, unspecified (11) Environmental allergies: Code(s): Z91.09 - Other allergy status, other than to drugs and biological substances (12) Subclavian arterial stenosis: Code(s): I77.1 - Stricture of artery Plan Patient is 74-year-old female came in today for a follow-up appointment.? Patient has developed tendinitis right thumb Upon further questioning she tells me that she has been holding her phone in her right hand a lot Explained to patient that it is because of that she has developed strain of her tendon in the thumb The treatment will be to stop the causative posture. She has also developed IBS like symptoms Where she will have diarrhea every week to 10 days for a day We talked about keeping a food diary and avoiding any causative foods Otherwise she may take Imodium as needed if diarrhea is bothering her There is no blood in stools, there is no abdominal pain no fever during that diarrhea Blood pressure is well controlled patient have mild subclavian artery stenosis that is why her blood pressure is lower in left upper extremity and high in right upper extremity Patient was instructed to continue monitoring her blood pressure in right arm only. and she is to continue with aspirin and statin no other intervention is needed at this time. She has been evaluated by vascular specialist already LFT elevation stable, labs to be done Lipid disorder:? Continue atorvastatin 20 mg and diet-controlled GERD is stable with omeprazole 20 mg. Weight-bearing exercises for osteopenia She is taking ibuprofen every now and then for osteoarthritis in her joints Continue aspirin BMI is elevated patient is trying to lose weight Follow-up 4 months Orders: Orders Complete Blood Count Auto Diff Today E78.9 - Disorder of lipoprotein metabolism, unspecified, I10 - Essential (primary) hypertension, K21.9 - Gastro-esophageal reflux disease without esophagitis, K58.9 - Irritable bowel syndrome without diarrhea, M19.91 - Primary osteoarthritis, unspecified site, M77.8 - Other enthesopathies, not elsewhere classified, M85.80 - Other specified disorders of bone density and structure, unspecified site Lipid Panel Today E78.9 - Disorder of lipoprotein metabolism, unspecified, I10 - Essential (primary) hypertension, K21.9 - Gastro-esophageal reflux disease without esophagitis, K58.9 - Irritable bowel syndrome without diarrhea, M19.91 - Primary osteoarthritis, unspecified site, M77.8 - Other enthesopathies, not elsewhere classified, M85.80 - Other specified disorders of bone density and structure, unspecified site Comprehensive [place]. Panel Fast Today E78.9 - Disorder of lipoprotein metabolism, unspecified, I10 - Essential (primary) hypertension, K21.9 - Gastro-esophageal reflux disease without esophagitis, K58.9 - Irritable bowel syndrome without diarrhea, M19.91 - Primary osteoarthritis, unspecified site, M77.8 - Other enthesopathies, not elsewhere classified, M85.80 - Other specified disorders of bone density and structure, unspecified site Coding Level of Care Code Est Pt Level 4 (17011) Complex EM visit Add On G2211 Diagnoses Hypertension, essential I10 Thumb tendonitis M77.8 Irritable bowel syndrome with diarrhea K58.0 Irritable bowel syndrome type: with diarrhea Gastroesophageal reflux disease without esophagitis K21.9 Esophagitis presence: without esophagitis Lipid disorder E78.9 Osteopenia, unspecified location M85.80 Osteopenia location: unspecified Primary osteoarthritis, unspecified site M19.91 Osteoarthritis location: unspecified site Osteoarthritis type: primary Peripheral artery disease I73.9 LFT elevation R79.89 Environmental allergies Z91.09 Subclavian arterial stenosis I77.1 Additional Codes ANGELICA-7 Assessment Billing - ANGELICA-7 Assessment Tool: ANGELICA-7 Assessment 19662 ([id number])
== END 2024-04-05 10:13 | disposition home or self-care (01) ==
PROVIDERS: PCP Internal Medicine; Visit Provider Internal Medicine
DX: I10 Essential (primary) hypertension (principal); I73.9 Peripheral vascular disease, unspecified; I77.1 Stricture of artery; M77.8 Other enthesopathies, not elsewhere classified; K58.0 Irritable bowel syndrome with diarrhea; K21.9 Gastro-esophageal reflux disease without esophagitis; E78.9 Disorder of lipoprotein metabolism, unspecified; M85.80 Other specified disorders of bone density and structure, unspecified site; M19.91 Primary osteoarthritis, unspecified site; Z91.09 Other allergy status, other than to drugs and biological substances
CPT/HCPCS: 99214; G2211

== ENCOUNTER 2024-05-03 09:13 | Outpatient (REF) | payer MEDICARE, OTHER, SELFPAY ==
[2024-05-03 09:46] LABS: MANUAL DIFF FLAG NO
[2024-05-03 09:59] LABS: Basophils Absolute Auto 0.1 X10*3/uL (0.0-0.2); Basophils Percent Auto 1.2 % (0-2); Eosinophils Absolute Auto 0.3 X10*3/uL (0.0-0.4); Eosinophils Percent Auto 3.9 % (0-4); Hematocrit 42.5 % (37.0-47.0); Hemoglobin 13.6 g/dl (12.0-16.0); Imm Gran Abs Auto 0.02 X10*3/uL (0.00-0.03); Imm Gran Pct Auto 0.2 % (0.0-0.4); Lymphocytes Absolute Auto 1.9 X10*3/uL (1.2-4.9); Lymphocytes Percent Auto 22.6 % (20-40); Mean Corpuscular Hemoglobin 28.3 pg (27.0-33.0); Mean Corpuscular Volume 88.5 fL (80.0-98.0); Monocytes Absolute Auto 0.8 X10*3/uL (0.1-1.2); Monocytes Percent Auto 9.6 % (2-11); Neutrophils Absolute Auto 5.3 x10*3/uL (2.0-8.3); Neutrophils Percent Auto 62.5 % (45-73); Platelet Count 409 X10*3/uL (160-400); Red Cell Distribution Width 13.5 % (11.0-16.0); White Blood Count 8.5 X10*3/uL (4.8-10.8)
[2024-05-03 10:43] LABS: Alanine Aminotransferase 20 U/L (0-31); Albumin Level 3.9 g/dL (3.5-5.0); Alkaline Phosphatase 128 U/L (39-117); Anion Gap 13 (12-20); Aspartate Amino Transferase 20 U/L (5-31); Bilirubin Total 0.6 mg/dL (0.0-1.0); Blood Urea Nitrogen 12 mg/dL (9-16); Calcium 9.6 mg/dL (8.4-10.2); Carbon Dioxide 27 mmol/L (22-29); Chloride 109 mmol/L (96-108); Cholesterol 180 mg/dL (<200); Estimated Glomerular Filt Rate > 60; Glucose Fasting 97 mg/dL (60-99); HDL Cholesterol 50 mg/dL (>40); LDL Cholesterol Calculated 103 mg/dL (<100); Potassium 4.5 mmol/L (3.3-5.1); Sodium 144 mmol/L (135-145); Triglycerides 139 mg/dL (<150)
== END 2024-05-03 09:14 | disposition home or self-care (01) ==
LOC: HO.LAB 09:13
PROVIDERS: PCP Internal Medicine; Visit Provider Internal Medicine
DX: E78.9 Disorder of lipoprotein metabolism, unspecified (principal); M85.80 Other specified disorders of bone density and structure, unspecified site; K21.9 Gastro-esophageal reflux disease without esophagitis; M19.91 Primary osteoarthritis, unspecified site; I10 Essential (primary) hypertension; K58.9 Irritable bowel syndrome, unspecified; M77.8 Other enthesopathies, not elsewhere classified
CPT/HCPCS: 36415; 80053; 80061; 85025

== ENCOUNTER 2024-09-06 09:16 | Outpatient (AMB) | payer MEDICARE, OTHER, SELFPAY ==
[2024-09-06 09:23] VITALS: BP 126/72; PULSE 82; RESP 17; TEMP 36.5; O2SAT 96; BMI 31.2
--- NOTE | 2024-09-06 09:23 | A.OFFPC_ITS ---
Vital Signs 09/06/24 09:23 Height 5 ft 0.5 in Weight 162 lb 8 oz BMI 31.2 BP 126/72 Blood Pressure Location Lt brachial Position Sitting Respiration 17 Pulse 82 Pulse Source Pulse Oximeter Temp 97.7 F Temp Source Oral Pulse Oximetry (%) 96 Oxygen Delivery Method Room Air Intake Visit Reasons: 4M F/U Allergies cephalexin [From KEFLEX] Allergy (Unknown, Verified 09/06/24 09:25) SPACEY, dizzy, lightheaded Penicillins [PENICILLINS] Allergy (Unknown, Verified 09/06/24 09:25) Unknown, childhood occurrence Medication List - Last Reconciled 09/06/24 by Nelson Brennan MD aspirin (Adult Aspirin Regimen) 81 mg PO DAILY atorvastatin 20 mg PO DAILY 90 days clobetasol 0.05% grams topical ibuprofen 400 mg PO Q8H losartan 25 mg PO DAILY 90 days omega-3 fatty acids-vitamin E ([place]-3 Fish Oil) PO omeprazole 20 mg PO DAILY 90 days Tobacco use date assessed: 09/06/24 Fall risk assessment: No Falls in past year Last assessed Fall Risk: 09/06/24 Dental Screening Dental Screen Date: 09/06/24 Did you have a dental visit in the last 12 months?: Yes Did you have a dental problem in the last 6 months where you did not have access to dental care?: No Was dental information given to patient?: Patient has dentist HPI 4M F/U HPI Details - The patient is a 74-year-old female pr esenting for follow-up appointment - She experiences chronic aches and pain s; management includes aspirin and ibuprofen use with no recent escalations. - The patient manages Essential Hyperten zari with Losartan 25 mg, with a current reading of 126/72 mmHg, reflecting well-controlled blood pressure. - She is on Atorvastatin 20 mg for Hyper lipidemia; LDL levels are documented at 103 mg/dL, indicating satisfactory lipid control - Previous laboratory evaluations depict normal CBC and metabolic functions. Liver enzymes have shown some fluctuations but are not currently symptomatic, with discussions highlighting a potential gallbladder relation. - Patient scheduled for Medicare wellnes s visit in January, with anticipated fasting blood work prior to the appointment. - Notes quilting as a hobby but is restr icted in certain physical activities and walking due to joint pain and unsuitable surfaces. - Social stressors include past challeng es managing a son with addiction issues, presently understanding this as a resolved factor in her life since he moved out Problem List - Aches and pains - Essential Hypertension - Hyperlipidemia - Alkaline Phosphatase Elevation Patient Instructions - Continue current medications: Losartan , Atorvastatin, aspirin, and ibuprofen as needed. - Attend the scheduled wellness appointm ent on January 04; arrive fasting for blood work. - Maintain recreational hobbies and exer cise, adapting activities to manage discomfort. - Monitor for any new or worsening sympt oms of gallbladder-related discomfort and report accordingly. Review of Systems - Musculoskeletal: Reports chronic aches and pains. - Cardiovascular: Denies any new problem s, well-controlled hypertension. - Gastrointestinal: Denies pain in the r ight upper quadrant or belly. - Psychological: Denies current signific ant stress; reports past stress related to son?s addiction issues. 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: Alert awake oriented x3 motor se nsory intact - Skin: Normal turgor PFSH Medical History Left arm pain HTN (hypertension) Diverticulosis Dermatofibrosarcoma Arthritis Back pain GERD (gastroesophageal reflux disease) Elevated cholesterol Surgical History History of arthroscopy of left shoulder History of cystoscopy History of esophagogastroduodenoscopy (EGD) Hx of colonoscopy History of tumor Deviated septum History of tonsillectomy H/O right knee surgery Family History Father Osteoporosis Heart disease Diabetes mellitus HTN (hypertension) CVD (cardiovascular disease) Mother Diabetes mellitus Other Substance use disorder Social History Housing: House Are you a primary director day care center to a significant other at home: No Do you presently have visiting nurse or other home services: No Alcohol intake: never Patient Tobacco Use Status: Former Tobacco user Years Smoked: 5 years e-Cigarette/Vaping Use: Never Used Second Hand Smoke Exposure: No service: No Current occupational status: retired Cognitive needs: No Hearing needs: Yes Vision needs: Yes Questionnaire PHQ-9 Over the last 2 weeks, how often have you been bothered by any of the following problems? 1. Little interest or pleasure in doing things: several days 2. Feeling down, depressed, or hopeless: not at all 3. Trouble falling or staying asleep, or sleeping too much: not at all 4. Feeling tired or having little energy: several days 5. Poor appetite or overeating: several days 6. Feeling bad about yourself - or that you are a failure or have let yourself or your family down: not at all 7. Trouble concentrating on things, such as reading the newspaper or watching television: several days 8. Moving or speaking so slowly that other people could have noticed. Or the opposite - being so fidgety or restless that you have been moving around a lot more than usual: not at all 9. Thoughts that you would be better off or of hurting yourself in some way: not at all Total score: 4 Depression Screening Interpretation: Negative Depression Screening Done: Yes 98124 - PHQ-9 Billing: Yes Source: Developed by Drs. Genaro Kramer, Cira Nino, Dustin Malagon and colleagues, with an educational shivani from [employer]. Thrive Questionnaire Date Thrive assessed: 09/06/24 I am a: Patient What is your living situation today?: I have a steady place to live Within the past 12 months, did the food you bought not last and you didn't have the money to get more?: Sometimes True Within the past 12 months, did you worry whether your food would run out before you got money to buy more?: Sometimes True Do you have trouble paying for medicines?: No Do you have trouble getting transportation to medical appointments?: No Do you have trouble paying your heating and electricity bill?: Yes Do you have trouble taking care of your child, family member or friend?: No Do you have trouble with day-to-day activities such as bathing, preparing meals, shopping, managing finances, etc.?: No Are you currently unemployed and looking for a job?: No Are you interested in more education?: No Please select the resources that you would like help with: None Currently or been in a relationship where the following occur: I choose not to answer THRIVE Score: 3 AUDIT C Alcohol Use Questionnaire (AUDIT-C) 1. How often do you have a drink containing alcohol?: Never 3. How often do you have six or more drinks on one occasion?: Never Total Score: 0 Score Reviewed/Action Taken: Yes ANGELICA-7 AMB Questionnaire ANGELICA-7 Date ANGELICA - 7 assessed: 09/06/24 Feeling nervous, anxious, or on edge: 0 = Not at all Not being able to stop or control worryin = Not at all Worrying too much about different things: 0 = Not at all Trouble relaxin = Not at all Being so restless that it is hard to sit still: 0 = Not at all Becoming easily annoyed or irritable: 0 = Not at all Feeling afraid as if something awful might happen: 0 = Not at all Total ANGELICA-7 score (0-4 normal; 5-9 mild; 10-14 moderate; 15-21 severe): 0 Source: Developed by Drs. Genaro Kramer, Cira Nino, Dustin Malagon and colleagues, with an educational shivani from [employer]. ANGELICA-7 Assessment Billing ANGELICA-7 Assessment Tool: ANGELICA-7 Assessment 69767 Physical exam (Primary Care) Vital Signs: Last Vital Signs Temp 97.7 F 09/06/24 09:23 Pulse 82 09/06/24 09:23 Resp 17 09/06/24 09:23 BP 126/72 09/06/24 09:23 Pulse Ox 96 09/06/24 09:23 Oxygen Delivery Method Room Air 09/06/24 09:23 BMI result Body Mass Index 31.2 Tobacco/Smoking Status: Tobacco use Status Tobacco use date assessed 09/06/24 09/06/24 09:26 Patient Tobacco Use Status Former Tobacco user 09/06/24 09:26 e-Cigarette/Vaping Use Never Used 09/06/24 09:26 PHQ-9: PHQ-9 Score PHQ-9: Total score 4 09/06/24 10:38 Depression Screening Interpretation: Negative Thrive Assessment: Date of Thrive Assessment Date Thrive assessed 09/06/24 09/06/24 09:26 Currently or been in a relationship where the following occur: I choose not to answer Coding Level of Care Code Est Pt Level 4 (46586) Complex EM visit Add On G2211 Diagnoses Hypertension, essential I10 Gastroesophageal reflux disease without esophagitis K21.9 Esophagitis presence: without esophagitis Lipid disorder E78.9 Osteopenia, unspecified location M85.80 Osteopenia location: unspecified Primary osteoarthritis, unspecified site M19.91 Osteoarthritis location: unspecified site Osteoarthritis type: primary Environmental allergies Z91.09 Fatty liver K76.0 LFT elevation R79.89 Additional Codes ANGELICA-7 Assessment Billing - ANGELICA-7 Assessment Tool: ANGELICA-7 Assessment 07332 ([id number]) PHQ-9 - 08000 - PHQ-9 Billing: Yes ([id number]) Assessment & Plan Assessment & Plan (1) Hypertension, essential: Code(s): I10 - Essential (primary) hypertension Category: Medical (2) GERD (gastroesophageal reflux disease): Code(s): K21.9 - Gastro-esophageal reflux disease without esophagitis Category: Medical Qualifiers: Esophagitis presence: without esophagitis Qualified Code(s): K21.9 - Gastro-esophageal reflux disease without esophagitis (3) Lipid disorder: Code(s): E78.9 - Disorder of lipoprotein metabolism, unspecified Category: Medical (4) Osteopenia: Code(s): M85.80 - Other specified disorders of bone density and structure, unspecified site Category: Medical Qualifiers: Osteopenia location: unspecified Qualified Code(s): M85.80 - Other specified disorders of bone density and structure, unspecified site (5) Osteoarthritis: Code(s): M19.90 - Unspecified osteoarthritis, unspecified site Category: Medical Qualifiers: Osteoarthritis location: unspecified site Osteoarthritis type: primary Qualified Code(s): M19.91 - Primary osteoarthritis, unspecified site (6) Environmental allergies: Code(s): Z91.09 - Other allergy status, other than to drugs and biological substances Category: Medical (7) Fatty liver: Code(s): K76.0 - Fatty (change of) liver, not elsewhere classified Category: Medical (8) LFT elevation: Code(s): R79.89 - Other specified abnormal findings of blood chemistry Category: Medical Plan - The patient is a 74-year-old female presenting for follow-up appointment - She experiences chronic aches and pains; management includes aspirin and ibuprofen use with no recent escalations. - The patient manages Essential Hypertension with Losartan 25 mg, with a current reading of 126/72 mmHg, reflecting well-controlled blood pressure. - She is on Atorvastatin 20 mg for Hyperlipidemia; LDL levels are documented at 103 mg/dL, indicating satisfactory lipid control - Previous laboratory evaluations depict normal CBC and metabolic functions. Liver enzymes have shown some fluctuations but are not currently symptomatic, with discussions highlighting a potential gallbladder relation. - Patient scheduled for Medicare wellness visit in January, with anticipated fasting blood work prior to the appointment. - Notes quilting as a hobby but is restricted in certain physical activities and walking due to joint pain and unsuitable surfaces. - Social stressors include past challenges managing a son with addiction issues, presently understanding this as a resolved factor in her life since he moved out Problem List - Aches and pains - Essential Hypertension - Hyperlipidemia - Alkaline Phosphatase Elevation Patient Instructions - Continue current medications: Losartan, Atorvastatin, aspirin, and ibuprofen as needed. - Attend the scheduled wellness appointment on January 04; arrive fasting for blood work. - Maintain recreational hobbies and exercise, adapting activities to manage discomfort. - Monitor for any new or worsening symptoms of gallbladder-related discomfort and report accordingly. Orders: Orders Comprehensive [place]. Panel Fast 3 Months E78.9 - Disorder of lipoprotein metabolism, unspecified, I10 - Essential (primary) hypertension, I73.9 - Peripheral vascular disease, unspecified, K21.9 - Gastro-esophageal reflux disease without esophagitis, K76.0 - Fatty (change of) liver, not elsewhere classified, M19.91 - Primary osteoarthritis, unspecified site, M85.80 - Other specified disorders of bone density and structure, unspecified site, R79.89 - Other specified abnormal findings of blood chemistry, Z91.09 - Other allergy status, other than to drugs and biological substances Lipid Panel 3 Months E78.9 - Disorder of lipoprotein metabolism, unspecified, I10 - Essential (primary) hypertension, I73.9 - Peripheral vascular disease, unspecified, K21.9 - Gastro-esophageal reflux disease without esophagitis, K76.0 - Fatty (change of) liver, not elsewhere classified, M19.91 - Primary osteoarthritis, unspecified site, M85.80 - Other specified disorders of bone density and structure, unspecified site, R79.89 - Other specified abnormal findings of blood chemistry, Z91.09 - Other allergy status, other than to drugs and biological substances Vitamin D 25-OH (D2 and D3) 3 Months E78.9 - Disorder of lipoprotein metabolism, unspecified, I10 - Essential (primary) hypertension, I73.9 - Peripheral vascular disease, unspecified, K21.9 - Gastro-esophageal reflux disease without esophagitis, K76.0 - Fatty (change of) liver, not elsewhere classified, M19.91 - Primary osteoarthritis, unspecified site, M85.80 - Other specified disorders of bone density and structure, unspecified site, R79.89 - Other specified abnormal findings of blood chemistry, Z91.09 - Other allergy status, other than to drugs and biological substances Vitamin B12 3 Months E78.9 - Disorder of lipoprotein metabolism, unspecified, I10 - Essential (primary) hypertension, I73.9 - Peripheral vascular disease, unspecified, K21.9 - Gastro-esophageal reflux disease without esophagitis, K76.0 - Fatty (change of) liver, not elsewhere classified, M19.91 - Primary osteoarthritis, unspecified site, M85.80 - Other specified disorders of bone density and structure, unspecified site, R79.89 - Other specified abnormal findings of blood chemistry, Z91.09 - Other allergy status, other than to drugs and biological substances Complete Blood Count Auto Diff 3 Months E78.9 - Disorder of lipoprotein metabolism, unspecified, I10 - Essential (primary) hypertension, I73.9 - Peripheral vascular disease, unspecified, K21.9 - Gastro-esophageal reflux disease without esophagitis, K76.0 - Fatty (change of) liver, not elsewhere classified, M19.91 - Primary osteoarthritis, unspecified site, M85.80 - Other specified disorders of bone density and structure, unspecified site, R79.89 - Other specified abnormal findings of blood chemistry, Z91.09 - Other allergy status, other than to drugs and biological substances TSH reflex Free T4 3 Months E78.9 - Disorder of lipoprotein metabolism, unspecified, I10 - Essential (primary) hypertension, I73.9 - Peripheral vascular disease, unspecified, K21.9 - Gastro-esophageal reflux disease without esophagitis, K76.0 - Fatty (change of) liver, not elsewhere classified, M19.91 - Primary osteoarthritis, unspecified site, M85.80 - Other specified disorders of bone density and structure, unspecified site, R79.89 - Other specified abnormal findings of blood chemistry, Z91.09 - Other allergy status, other than to drugs and biological substances UA CC w/rflx Micro + Cult 3 Months E78.9 - Disorder of lipoprotein metabolism, unspecified, I10 - Essential (primary) hypertension, I73.9 - Peripheral vascular disease, unspecified, K21.9 - Gastro-esophageal reflux disease without esophagitis, K76.0 - Fatty (change of) liver, not elsewhere classified, M19.91 - Primary osteoarthritis, unspecified site, M85.80 - Other specified disorders of bone density and structure, unspecified site, R79.89 - Other specified abnormal findings of blood chemistry, Z91.09 - Other allergy status, other than to drugs and biological substances
== END 2024-09-06 10:16 | disposition home or self-care (01) ==
PROVIDERS: PCP Internal Medicine; Visit Provider Internal Medicine
DX: I10 Essential (primary) hypertension (principal); K21.9 Gastro-esophageal reflux disease without esophagitis; E78.9 Disorder of lipoprotein metabolism, unspecified; M85.80 Other specified disorders of bone density and structure, unspecified site; M19.91 Primary osteoarthritis, unspecified site; Z91.09 Other allergy status, other than to drugs and biological substances; K76.0 Fatty (change of) liver, not elsewhere classified; R79.89 Other specified abnormal findings of blood chemistry

== ENCOUNTER → 2024-09-06 09:16 | Outpatient (BNVA) | payer MEDICARE, OTHER, SELFPAY | PROVIDERS: PCP Internal Medicine; Visit Provider Internal Medicine | DX: I10 Essential (primary) hypertension (principal); K21.9 Gastro-esophageal reflux disease without esophagitis; E78.9 Disorder of lipoprotein metabolism, unspecified; M85.80 Other specified disorders of bone density and structure, unspecified site; M19.91 Primary osteoarthritis, unspecified site; K76.0 Fatty (change of) liver, not elsewhere classified; R79.89 Other specified abnormal findings of blood chemistry; Z91.09 Other allergy status, other than to drugs and biological substances | CPT/HCPCS: 96127; 99212 ==

== ENCOUNTER 2024-10-31 10:20 | Outpatient (REF) | payer MEDICARE, OTHER, SELFPAY ==
--- OUTSIDE RECORDS SUMMARY | 2024-10-31 11:32 | XMS_ITS ---
Author Organization [facility] Address [address] [place] [address] Care Team Providers Care Avionics Supervisor Name Role Phone Mika HILL, Nelson Primary Care Provider Natalie Garcia Jr, Teodoro Recinos [phone] REASON FOR VISIT screening Encounters Encounter Location Date Provider Diagnosis [facility] [address] [place] [id number] 05/12/2023 Teodoro Garcia Jr Encounter for screening colonoscopy for xgb-dqrd-ence patient Z12.11 and Colon polyps K63.5 Assessments Encounter Date Diagnosis (ICD Code) Assessment Notes Treatment Notes Treatment Clinical Notes Section Notes 05/12/2023 Encounter for screening colonoscopy for pbz-hxqu-dsob patient (ICD-10 - Z12.11) 05/12/2023 Colon polyps (ICD-10 - K63.5) Plan Of Treatment No Information Progress Notes * BERYL BASS CDOB:02/1950 (74 yo F)Acc No.[id number]:05/12/2023 COLON WITH MAC Patient:?BERYL BASS Provider:?Teodoro Garcia MD :1950???Age:73 Y???Sex:Female D ate:05/12/2023 Address:[address] [place] [address] Pcp:Nelson Brennan MD Subjective: * Chief Complaints: * ???1. Screening. * Medical History:? Objective: * Vitals:? Assessment: * Assessment: 1.?Encounter for screening c olonoscopy for oot-jied-bcrs patient - Z12.11 (Primary)???2.?Colon polyps - K63.5??? Plan: * Treatment: * Procedure Codes:?12053 LESIO N REMOVAL COLONOSCOPY, 0529F INTRVL 3+YRS PTS CLNSCP DOCD * * The named appointment provid er may or may not be the originator of this progress note, and it is not deemed complete until electronically signed by the appointment provider. Sign off status: Pending * Provider:?Teodoro Garcia MD Date:?1 Generated for Mirza jacobs/Tiffany/eTransmitting on:?10/31/2024 11:32 AM EDT
--- OUTSIDE RECORDS SUMMARY | 2024-10-31 11:32 | XMS_ITS ---
Author Organization [facility] Address [address] [place] [id number] Care Team Providers Care Inspector Balance Bridge Name Role Phone Mika HILL, Asma Primary Care Provider Teodoro Mcgee Jr [phone] REASON FOR VISIT pathology Encounters Encounter Location Date Provider Diagnosis [facility] [address] [place] [id number] 05/19/2023 Teodoro Garcia Jr Plan Of Treatment No Information Progress Notes * KALI BERYL CDOB:02/1950 (73 yo F)Acc No.[id number]:05/19/2023 Patient:?BERYL BASS :1950???Age:73 Y???Sex:Female Address:[address] [place] [id number] * true * Date:? Generated for Adai arlene/Tiffany/eTransmitting on:?10/31/2024 11:32 AM EDT
--- OUTSIDE RECORDS SUMMARY | 2024-10-31 11:33 | XMS_ITS | Patient Health Record ---
Author Organization [facility] Address [address] [place] [address] Care Team Providers Care Refrigerator Room Clerk Name Role Phone [facility]ika [facility]ILL, [facility] Primary Care Provider Teodoro Mcgee Jr Unavailable Allergies Allergen (clinical drug ingredient) Drug/Non Drug Allergy documented on EMR Reaction Allergy Type Onset Date Status penicillamine Penicillamine Unknown Drug Allergy Active Keflex Unknown Drug Allergy Active Reason For Referral No Information Medications Medication SIG (Take, Route, Frequency, Duration) Notes Start Date End Date Status Fexofenadine HCl 180 MG 1 tablet Swallow whole with water; do not take with fruit juices. Orally Once a day for 30 day(s) Active MiraLax (colon prep) 17 GM/SCOOP mixed with Gatorade or Crystal Light Orally begin at 5:00 p.m. the day before the procedure for 1 day 04/20/2023 Active Atorvastatin Calcium 20 MG 1 tablet Oral ly Once a day for 30 day(s) Active Omeprazole 20 MG 1 capsule 30 minutes before morning meal Orally Once a day for 30 day(s) Active Losartan Potassium 25 MG 1 tablet Orally Once a day for 30 day(s) Active Aspirin 81 81 MG 1 tablet Orally Once a day for 30 day(s) Active [place] 3 1000 MG 1 capsule Orally Onc e a day for 30 day(s) Active Immunizations Vaccine Route Administration Date Status Comme nts Influenza Unknown 04/07/2023 Administered Problems Problem Type SNOMED Code ICD Code Onset Dates Problem Status W/U Status Risk Notes Problem 537214777 Colon cancer screening (Z12.11) Active confirmed Problem 210075834 Long-term curren t use of high risk medication other than anticoagulant (Z79.899) Active confirmed Problem 669989996 Gastroesophageal reflux disease, unspecified whether esophagitis present (K21.9) Active confirmed Plan Of Treatment Future Test Test Name Order Date COLONOSCOPY 08/18/2012 COLONOSCOPY 04/20/2023 Insurance Providers Payer Name Payer Address Payer Phone Subscriber Number Group Number Insured Name Patient Relationship to Insured Coverage Start Date Coverage End Date MEDICARE OF [place] [address] [place] [address] [id number] BERYL DUNNE Self - patient is the insured [employer] [address] [place] [address] [id number] BERYL DUNNE Self - patient is the insured Medical (General) History Medical History History ICD Code Colonoscopy 11/03/12, normal, ten-year fol lowup diverticulosis enviromental allergies arthritis Hypertension Gastroesophageal reflux dise ase, EGD 01/19, no H. pylori or Crooks's esophagus. 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
== END 2024-10-31 10:21 | disposition home or self-care (01) ==
LOC: HO.MAMMO 10:20
PROVIDERS: PCP Internal Medicine; Visit Provider Internal Medicine
DX: Z12.31 Encounter for screening mammogram for malignant neoplasm of breast (principal)
CPT/HCPCS: 77063; 77067

== ENCOUNTER → 2024-10-31 10:45 | Outpatient (BNV) | payer MEDICARE, OTHER, SELFPAY | PROVIDERS: PCP Internal Medicine; Visit Provider Internal Medicine | DX: Z12.31 Encounter for screening mammogram for malignant neoplasm of breast (principal) | CPT/HCPCS: 77063; 77067 ==

== ENCOUNTER 2024-12-28 08:18 | Outpatient (REF) | payer MEDICARE, OTHER, SELFPAY ==
--- OUTSIDE RECORDS SUMMARY | 2024-12-28 08:31 | XMS_ITS | Patient Health Record ---
Author Organization [facility] Address [address] [place] [address] Care Team Providers Care Keeper Head Name Role Phone Mika [facility]ILL, [facility] Primary Care Provider Teodoro Mcgee Jr Unavailable [...] Once a day for 30 day(s) Active [place] 3 1000 MG 1 capsule Orally Onc e a day for 30 day(s) Active Immunizations Vaccine Route Administration Date Status Comme nts Influenza Unknown 04/07/2023 Administered Problems Problem Type SNOMED Code ICD Code Onset Dates Problem Status W/U Status Risk Notes Problem 865022512 Colon cancer screening (Z12.11) Active confirmed Problem 219593967 Long-term curren t use of high risk medication other than anticoagulant (Z79.899) Active confirmed Problem 825198839 Gastroesophageal reflux disease, unspecified whether esophagitis present (K21.9) Active confirmed Plan Of Treatment Future Test Test Name Order Date COLONOSCOPY 08/18/2012 COLONOSCOPY 04/20/2023 Insurance Providers Payer Name Payer Address Payer Phone Subscriber Number Group Number Insured Name Patient Relationship to Insured Coverage Start Date Coverage End Date MEDICARE OF [place] [address] [place] [address] [id number] BERYL DUNNE Self - patient is the insured [employer] [address] [place] [address] [id number] BERYL DUNNE Self - patient is the insured Medical (General) History Medical History History ICD Code Colonoscopy 11/03/12, normal, ten-year fol lowup diverticulosis enviromental allergies arthritis Hypertension Gastroesophageal reflux dise ase, EGD 01/19, no H. pylori or Crooks's esophagus. 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
[2024-12-28 08:43] LABS: MANUAL DIFF FLAG NO
[2024-12-28 08:55] LABS: Basophils Absolute Auto 0.1 X10*3/uL (0.0-0.2); Basophils Percent Auto 1.2 % (0-2); Eosinophils Absolute Auto 0.4 X10*3/uL (0.0-0.4); Eosinophils Percent Auto 4.3 % (0-4); Hematocrit 41.9 % (37.0-47.0); Hemoglobin 13.7 g/dl (12.0-16.0); Imm Gran Abs Auto 0.03 X10*3/uL (0.00-0.03); Imm Gran Pct Auto 0.3 % (0.0-0.4); Lymphocytes Absolute Auto 2.3 X10*3/uL (1.2-4.9); Lymphocytes Percent Auto 25.7 % (20-40); Mean Corpuscular HGB Conc 32.7 g/dl (31.0-35.0); Mean Corpuscular Hemoglobin 28.7 pg (27.0-33.0); Mean Corpuscular Volume 87.8 fL (80.0-98.0); Mean Platelet Volume 9.9 fL (9.4-12.3); Monocytes Absolute Auto 0.8 X10*3/uL (0.1-1.2); Monocytes Percent Auto 8.3 % (2-11); Neutrophils Absolute Auto 5.4 x10*3/uL (2.0-8.3); Neutrophils Percent Auto 60.2 % (45-73); Platelet Count 416 X10*3/uL (160-400); Red Blood Count 4.77 X10*6/uL (4.20-5.50); Red Cell Distribution Width 13.5 % (11.0-16.0)
[2024-12-28 08:58] LABS: Appearance Urine Cloudy; Color Urine Yellow; Glucose Urine UA Negative (Negative); Leukocyte Esterase Urine Moderate (2+) (Negative); Nitrite Urine Positive (Negative); PH 5.5 (5.0-9.0); Specific Gravity - Urine 1.025 (1.005-1.025); UMIC TRIGGER UACC YES; Urine Blood Negative (Negative); Urine Ketones Trace mg/dL (Negative); Urine Protein Trace mg/dL (Neg-Trace)
[2024-12-28 09:08] LABS: Bacteria Urine 2+ (None Seen); Hyaline Casts Urine 0-2 /LPF (0-2); RBC Urine 0-2 /HPF (0-2); UACC Culture Trigger YES
[2024-12-28 09:29] LABS: Alanine Aminotransferase 31 U/L (0-31); Alkaline Phosphatase 132 U/L (39-117); Anion Gap 10 (12-20); Aspartate Amino Transferase 29 U/L (5-31); Bilirubin Total 0.7 mg/dL (0.0-1.0); Blood Urea Nitrogen 19 mg/dL (9-16); Calcium 9.1 mg/dL (8.4-10.2); Carbon Dioxide 24 mmol/L (22-29); Chloride 112 mmol/L (96-108); Cholesterol 167 mg/dL (<200); Estimated Glomerular Filt Rate > 60; Glucose Fasting 100 mg/dL (60-99); HDL Cholesterol 54 mg/dL (>40); LDL Cholesterol Calculated 92 mg/dL (<100); Potassium 4.2 mmol/L (3.3-5.1); Sodium 142 mmol/L (135-145); Triglycerides 109 mg/dL (<150)
[2024-12-28 09:40] LABS: TSH reflex Free T4 2.68 uIU/mL (0.32-4.0)
[2024-12-28 09:49] LABS: Vitamin B12 389 pg/mL (200-900)
[2024-12-31 16:42] LABS: Vitamin D 25-OH, D2 <4 ng/mL; Vitamin D 25-OH, D3 26 ng/mL; Vitamin D 25-OH, Total 26 ng/mL (30-100)
== END 2024-12-28 08:19 | disposition home or self-care (01) ==
LOC: HO.LAB 08:18
PROVIDERS: PCP Internal Medicine; Visit Provider Internal Medicine
DX: E78.9 Disorder of lipoprotein metabolism, unspecified (principal); M85.80 Other specified disorders of bone density and structure, unspecified site; M19.91 Primary osteoarthritis, unspecified site; Z91.09 Other allergy status, other than to drugs and biological substances; K76.0 Fatty (change of) liver, not elsewhere classified; K21.9 Gastro-esophageal reflux disease without esophagitis; I10 Essential (primary) hypertension; R79.89 Other specified abnormal findings of blood chemistry; I73.9 Peripheral vascular disease, unspecified
CPT/HCPCS: 36415; 80053; 80061; 81001; 82306; 82607; 84443; 85025; 87086; 87088; 87186

== ENCOUNTER 2025-01-04 10:15 | Outpatient (AMB) | payer MEDICARE, OTHER, SELFPAY ==
[2025-01-04 10:18] VITALS: BP 140/80; PULSE 86; O2SAT 97; BMI 32.1
--- NOTE | 2025-01-04 10:18 | A.OFFVIS_ITS ---
Intake Vital Signs 01/04/25 10:18 Height 5 ft 0.5 in Weight 167 lb BMI 32.1 BP 140/80 H Blood Pressure Location Rt brachial Position Sitting Pulse 86 Pulse Source Pulse Oximeter Pulse Oximetry (%) 97 Oxygen Delivery Method Room Air Intake Visit Reasons: V G0439 Allergies cephalexin [From KEFLEX] Allergy (Unknown, Verified 01/04/25 10:18) SPACEY, dizzy, lightheaded Penicillins [PENICILLINS] Allergy (Unknown, Verified 01/04/25 10:18) Unknown, childhood occurrence Medication List - Last Reconciled 01/04/25 by Nelson Brennan MD aspirin (Adult Aspirin Regimen) 81 mg PO DAILY atorvastatin 20 mg PO DAILY 90 days clobetasol 0.05% grams topical ibuprofen 400 mg PO Q8H losartan 25 mg PO DAILY 90 days omega-3 fatty acids-vitamin E ([place]-3 Fish Oil) PO omeprazole 20 mg PO DAILY 90 days pimecrolimus 1% appl topical BID HPI V G0439 HPI Details History - The patient is a 74-year-old female pr esenting for a Medicare wellness visit and evaluation of dizziness. - The patient reports experiencing dizzi ness primarily when bending down and standing up, describing symptoms consistent with positional vertigo. - She notes an association between the d izziness and her allergies, for which she is taking fexofenadine. - The dizziness has reportedly been caus ing her to trip over raised surfaces at times, although she denies any falls. Also feels as if she is leaning toward h er right side when she is walking - The patient also notes the recent onse t of treatment for scarring alopecia, which began three weeks prior to the visit with a prescription cream. Dermatology - The patient was previously treated wit h corticosteroid injections for alopecia before commencing the current topical treatment. Medical History: - Essential Hypertension - Hyperlipidemia - Scarring Alopecia - Pre-Diabetes - Vitamin D Deficiency Medications: - Atorvastatin for hyperlipidemia - Losartan for hypertension - Omeprazole for acid reflux - Fexofenadine for allergies - Ibuprofen as needed for pain - Vitamin D3 supplement, 1000 units bennett y, for vitamin D deficiency Social History: - The patient exercises infrequently and describes herself as experiencing laziness regarding physical activity. - She spends time outdoors in the yard. Diagnostic Results: - Labs: Electrolytes normal, Kidney func tion normal, Cholesterol levels with LDL at 92, Vitamin D low, Fasting glucose at 100 (pre-diabetic) - Screening: Mammogram up to date as of October; colonoscopy last performed in 2012 with the next due in 2022. Preventive care reviewed Problem List - Scarring Alopecia - Essential Hypertension - Hyperlipidemia - Vitamin D Deficiency - Dizziness due to Positional Vertigo - tripping/risk for fall - feeling of leaning towards right when walking - obesity Patient Instructions - Continue current medications including Vitamin D supplementation. - Exercise caution to avoid tripping and falls. - Consider consultation with a neurologi st if dizziness persists or worsens. Referral placed - Monitor blood pressure at home. - Schedule follow-up for wellness visit in six months. Review of Systems - General: No fever no chills - Neurological: No headaches no dizziness - Ear nose throat: No sore throat no hearing difficulty no ear pain - Cardiovascular: No syncope, no chest pain, no palpitations - Gastrointestinal: No nausea vomiting or diarrhea - Endocrine: No polyuria polydipsia no heat intolerance - Genitourinary: No dysuria , no blood in urine Physical Exam General: No acute distress HEENT: No acute findings Neck: Supple Respiratory system: Able to talk in full sentences, no audible wheeze Cardiovascular: S1-S2 regular in rate and rhythm Gastrointestinal: No pain Extremities: No new findings 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: Alert awake oriented x3 motor sensory intact, reports dizziness and tripping, positional vertigo noted Skin: Normal turgor, presence of varicose veins noted HPI Comments History of Present Illness Details AWV Medical/social history reviewed Past medical history reviewed Anderson of care / care team list updated Surgical/ hospitalization history reviewed Current medications including OTC and supplements reviewed Family history reviewed Tobacco controlled form updated Alcohol use form updated Illicit drug use in social history reviewed Current diagnosis of depression ?screening updated Appropriate PHQ 2/PHQ-9 completed . Vital signs reviewed Alcohol tobacco drug use reviewed and discussed . MMSE completed . ? Fall risk: ?Assessed Fall history: ?None Have you had any falls with injury in the past year?? No Have you had 2 or more falls in the past year?? No Fall risk assessment completed Home safety discussed with the patient Functional ability assessed and discussed and documented Activities of daily living reviewed and appropriate actions taken . HRA filled out by the patient and reviewed by provider and scanned . Appropriate written screening schedule established . Any health advise needed provided . Advance care planning discussed with the patient , necessary paperwork filled Examination IPPE/AWE: Balance intact Romberg intact Tandem walk intact walk-in turn intact rise from sit to stand intact . ?Hearing ?Wears hearing aid . Medication list reviewed, patient is stable on medications All other providers patient is seeing discussed and noted . [facility] Medical History Left arm pain HTN (hypertension) Diverticulosis Dermatofibrosarcoma Arthritis Back pain GERD (gastroesophageal reflux disease) Elevated cholesterol Surgical History History of arthroscopy of left shoulder History of cystoscopy History of esophagogastroduodenoscopy (EGD) Hx of colonoscopy History of tumor Deviated septum History of tonsillectomy H/O right knee surgery Family History Father Osteoporosis Heart disease Diabetes mellitus HTN (hypertension) CVD (cardiovascular disease) Mother Diabetes mellitus Other Substance use disorder Social History Housing: House Are you a primary certified caregiver to a significant other at home: No Do you presently have visiting nurse or other home services: No Alcohol intake: never Patient Tobacco Use Status: Former Tobacco user Years Smoked: 5 years e-Cigarette/Vaping Use: Never Used Second Hand Smoke Exposure: No service: No Current occupational status: retired Cognitive needs: No Hearing needs: Yes Vision needs: Yes Questionnaire Medicare Wellness Checkup [age] What gender do you identify with?: female During the past 4 weeks, how much have you been bothered by emotional problems such as feeling anxious, depressed, irritable, sad or downhearted, and blue?: slightly During the past 4 weeks, has your physical & emotional health limited your social activities with family, friends, neighbors, or groups?: slightly During the past 4 weeks, how much bodily pain have you generally had?: moderate pain During the past 4 weeks, was someone available to help you if you needed & wanted help?: yes, a little During the past 4 weeks, what was the hardest physical activity you could do for at least 2 minutes?: moderate Can you get to places out of walking distance without help? (For eg., can you travel alone on buses, taxis or drive your car?): Yes Can you go shopping for groceries or clothes without someone's help?: Yes Can you prepare your own meals?: Yes Can you do your housework without help?: Yes Because of any health problems, do you need the help of another person with your personal care needs such as eating, bathing, dressing or getting around the house?: No Can you handle your own money without help?: Yes During the past 4 weeks, how would you rate your health in general?: good During the past 4 weeks how have things been going for you?: pretty well Are you having difficulties driving your car?: no Do you always fasten your seat belt when you are in a car?: yes, usually During past 4 weeks, have you been bothered by the following: never: Problems using the telephone?, sometimes: Falling or dizzy when standing up, Sexual problems?, Trouble eating well? and Teeth or denture problems? and often: Tiredness or fatigue? Have you fallen 2 or more times in the past year?: No Are you afraid of falling?: Yes Are you a smoker?: no During the past 4 weeks, how many drinks of wine, beer, or other alcoholic beverages did you have?: no alcohol at all Do you exercise for about 20 minutes 3 or more times a week?: no, I usually do not exercise this much Have you been given information to help with the following?: yes: Keeping track of your medications? and no: Hazards in your house that might hurt you? How often do you have trouble taking medicines the way you have been told to take them?: I always take medicine as prescribed How confident are you that you can control & manage most of your health problems?: somewhat confident What is your race?: White Mini Mental State Exam (MMSE) Orientation What is the (year) (season) (date) (day) (month)?: year, season, date, day and month Where are we (state) (county) (town or city) (hospital) (floor)?: state, county, town or city, hospital/clinic and floor Score Score: 10 Activity of Daily Living Bathing - sponge bath, tub bath or shower: receives no assistance (gets in/out by self, if usual bathing means Dressing - getting clothes from closets & drawers, including inner/outer garments & fasteners.: gets clothes & gets completely dressed without help Toileting - going to the 'toilet room' for urine/bowel elimination & cleaning self/arranging clothes: goes to toilet room, cleans self, arranges clothes without help Transfer: moves in & out of bed and chair without help (may use support object) Continence: controls urination/bowel movements completely by self Feeding: feeds self without help Total Score: 0 Information obtained from: patient Using telephone: independent Traveling: independent Shopping: independent Preparing meals: independent Housework: independent Taking medicine: independent Managing money: independent PHQ-9 Over the last 2 weeks, how often have you been bothered by any of the following problems? 1. Little interest or pleasure in doing things: several days 2. Feeling down, depressed, or hopeless: not at all 3. Trouble falling or staying asleep, or sleeping too much: several days 4. Feeling tired or having little energy: several days 5. Poor appetite or overeating: several days 6. Feeling bad about yourself - or that you are a failure or have let yourself or your family down: not at all 7. Trouble concentrating on things, such as reading the newspaper or watching television: several days 8. Moving or speaking so slowly that other people could have noticed. Or the opposite - being so fidgety or restless that you have been moving around a lot more than usual: not at all 9. Thoughts that you would be better off or of hurting yourself in some way: not at all Total score: 5 Depression Screening Interpretation: Negative Depression Screening Done: Yes 13175 - PHQ-9 Billing: Yes Source: Developed by Drs. Genaro Kramer, Cira Nino, Dustin Malagon and colleagues, with an educational shivani from [employer]. Physical Exam Vital Signs: Last Vital Signs Pulse 86 01/04/25 10:18 BP 140/80 H 01/04/25 10:18 Pulse Ox 97 01/04/25 10:18 Oxygen Delivery Method Room Air 01/04/25 10:18 BMI result Body Mass Index 32.1 Assessment & Plan Assessment & Plan (1) Medicare annual wellness visit, subsequent: Code(s): Z00.00 - Encounter for general adult medical examination without abnormal findings (2) Gait disturbance: Code(s): R26.9 - Unspecified abnormalities of gait and mobility (3) Dizziness: Code(s): R42 - Dizziness and giddiness (4) Hypertension, essential: Code(s): I10 - Essential (primary) hypertension (5) Lipid disorder: Code(s): E78.9 - Disorder of lipoprotein metabolism, unspecified (6) Environmental allergies: Code(s): Z91.09 - Other allergy status, other than to drugs and biological substances (7) Osteopenia: Code(s): M85.80 - Other specified disorders of bone density and structure, unspecified site Qualifiers: Osteopenia location: unspecified Qualified Code(s): M85.80 - Other specified disorders of bone density and structure, unspecified site (8) GERD (gastroesophageal reflux disease): Code(s): K21.9 - Gastro-esophageal reflux disease without esophagitis Qualifiers: Esophagitis presence: without esophagitis Qualified Code(s): K21.9 - Gastro-esophageal reflux disease without esophagitis Plan History - The patient is a 74-year-old female presenting for a Medicare wellness visit and evaluation of dizziness. - The patient reports experiencing dizziness primarily when bending down and standing up, describing symptoms consistent with positional vertigo. - She notes an association between the dizziness and her allergies, for which she is taking fexofenadine. - The dizziness has reportedly been causing her to trip over raised surfaces at times, although she denies any falls. Also feels as if she is leaning toward her right side when she is walking - The patient also notes the recent onset of treatment for scarring alopecia, which began three weeks prior to the visit with a prescription cream. Dermatology - The patient was previously treated with corticosteroid injections for alopecia before commencing the current topical treatment. Medical History: - Essential Hypertension - Hyperlipidemia - Scarring Alopecia - Pre-Diabetes - Vitamin D Deficiency Medications: - Atorvastatin for hyperlipidemia - Losartan for hypertension - Omeprazole for acid reflux - Fexofenadine for allergies - Ibuprofen as needed for pain - Vitamin D3 supplement, 1000 units daily, for vitamin D deficiency Social History: - The patient exercises infrequently and describes herself as experiencing laziness regarding physical activity. - She spends time outdoors in the yard. Diagnostic Results: - Labs: Electrolytes normal, Kidney function normal, Cholesterol levels with LDL at 92, Vitamin D low, Fasting glucose at 100 (pre-diabetic) - Screening: Mammogram up to date as of October; colonoscopy last performed in with the next due in 2022. Preventive care reviewed Problem List - Scarring Alopecia - Essential Hypertension - Hyperlipidemia - Vitamin D Deficiency - Dizziness due to Positional Vertigo - tripping/risk for fall - feeling of leaning towards right when walking - obesity Patient Instructions - Continue current medications including Vitamin D supplementation. - Exercise caution to avoid tripping and falls. - Consider consultation with a neurologist if dizziness persists or worsens. Referral placed - Monitor blood pressure at home. - Schedule follow-up for wellness visit in six months. Orders: Referrals Neurology Referral R26.9 - Unspecified abnormalities of gait and mobility, R42 - Dizziness and giddiness Quality Reporting (2019) Depression/Bipolar (159/160/161/177) PHQ-9: Total score: 5 Coding Level of Care Code Medicare Subsequent (G0439) Est Pt Level 4 (14617) Diagnoses Medicare annual wellness visit, subsequent Z00.00 Gait disturbance R26.9 Dizziness R42 Hypertension, essential I10 Lipid disorder E78.9 Environmental allergies Z91.09 Osteopenia, unspecified location M85.80 Osteopenia location: unspecified Gastroesophageal reflux disease without esophagitis K21.9 Esophagitis presence: without esophagitis CPT Codes Advance Care Planning - Advance Care Planning discussion: On file, no changes ([id number]) Additional Codes PHQ-9 - 02635 - PHQ-9 Billing: Yes ([id number]) Advance Care Planning Advance Care Planning discussion: On file, no changes
--- OUTSIDE RECORDS SUMMARY | 2025-01-04 10:54 | XMS_ITS | Patient Health Record ---
Author Organization [facility] Address [address] [place] [address] Care Team Providers Care Cda Teacher Name Role Phone Mika HILL, [facility] Primary Care Provider Unavailabl e Black, Flory Unavailable [phone] Allergies Allergen (clinical drug ingredient) Drug/Non Drug Allergy documented on EMR Reaction Allergy Type Onset Date Status Keflex dizziness Drug Allergy Active Penicillin Unknown Drug Allergy Active Reason For Referral No Information Medications Medication SIG (Take, Route, Frequency, Duration) Notes Start Date End Date Status Mobic 15 MG 1 tablet Orally Once a day for 30 Active [place]-3 1000 MG Orally Acti ve ASO Ankle/Foot Stablizing AFO As directed Wear Daily for as needed 10/22/2017 Active Atorvastatin Calcium 20 MG Orally Active Omeprazole 20 MG Orally Act yolis Aspir-81 Active Fexofenadine HCl 180 MG Orally Active ASO Ankle/Foot Stablizing AFO As directed Wear Daily for as needed 12/22/2019 Active Social History Tobacco Use: Social History Observation Description Date Details (start date - stop date) Former Smoker NA - NA Tobacco Use/Smoking Question Answer Notes Are you a: former smoker Additional Findings: Tobacco Non-User Current no n-smoker Alcohol Screen Question Answer Notes Did you have a drink containing alcohol in the p ast year? No Points 0 Interpretation Negative Tobacco use other than smoking: Question Answer Notes Are you an other tobacco user? 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 Plan Of Treatment No Information Insurance Providers Payer Name Payer Address Payer Phone Subscriber Number Group Number Insured Name Patient Relationship to Insured Coverage Start Date Coverage End Date Medicare [employer] [address] [place] [address] [id number] Cherie Moreno Self - patient is the insured for Life [address] [place] [address] [id number] Cherie Moreno Self - patient is the insured Medical (General) History Medical History History ICD Code Arthritis Back,Hip,and Knee pain Broken bones Cancer Reflux ( GERD) Measles Mumps Chicken pox Allergies Surgical History Surgery Date(Month/Year) tonsillectomy 1972 knee repair 1982
== END 2025-01-04 10:51 | disposition home or self-care (01) ==
LOC: HO.HMCC 10:16
PROVIDERS: PCP Internal Medicine; Visit Provider Internal Medicine
DX: Z00.00 Encounter for general adult medical examination without abnormal findings (principal); R26.9 Unspecified abnormalities of gait and mobility; R42 Dizziness and giddiness; I10 Essential (primary) hypertension; E78.9 Disorder of lipoprotein metabolism, unspecified; Z91.09 Other allergy status, other than to drugs and biological substances; M85.80 Other specified disorders of bone density and structure, unspecified site; K21.9 Gastro-esophageal reflux disease without esophagitis

== ENCOUNTER → 2025-01-04 10:15 | Outpatient (BNVA) | payer MEDICARE, OTHER, SELFPAY | PROVIDERS: PCP Internal Medicine; Visit Provider Internal Medicine | DX: Z00.01 Encounter for general adult medical examination with abnormal findings (principal); R26.9 Unspecified abnormalities of gait and mobility; R42 Dizziness and giddiness; E78.9 Disorder of lipoprotein metabolism, unspecified; I10 Essential (primary) hypertension; Z91.09 Other allergy status, other than to drugs and biological substances; M85.80 Other specified disorders of bone density and structure, unspecified site; K21.9 Gastro-esophageal reflux disease without esophagitis | CPT/HCPCS: 96127; 99212 ==

== ENCOUNTER 2025-03-30 12:17 | Outpatient (AMB) | payer MEDICARE, OTHER, SELFPAY ==
--- NOTE | 2025-03-30 12:26 | A.OFFVIS_ITS ---
Intake Visit Reasons: abn gait, dizziness Allergies cephalexin (From KEFLEX) Allergy (Unknown, Verified 01/04/25 10:18) SPACEY, dizzy, lightheaded Penicillins (PENICILLINS) Allergy (Unknown, Verified 01/04/25 10:18) Unknown, childhood occurrence HPI Comments Details: The patient is a 75 year old female presenting with balance issues and dizziness. She recalls a fall two months ago without permanent injury but attributes her current concerns to an increasingly frequent tendency to trip, especially when climbing stairs or engaging in activities that require specific head positions. These symptoms have reportedly developed over the last three to four months and have become more frequent with time. The patient is cautious while descending stairs, having had her staircase railing reconstructed due to prior instability. She describes experiencing dizziness which is exacerbated by specific movements such as bending down or standing up too quickly. The episodes are brief, though concerning, and have not occurred when she rolls over in bed. Additionally, she has noted some hearing difficulties over recent years. There is no associated pain or infections linked to her hearing issues, but she has noticed occasional forgetfulness, particularly with word retrieval. [facility] Medical History (Updated 03/30/25 @ 12:41 by Robert Brennan MD) Dizziness Abnormal gait due to muscle weakness Left arm pain HTN (hypertension) Diverticulosis Dermatofibrosarcoma Arthritis Back pain GERD (gastroesophageal reflux disease) Elevated cholesterol Surgical History History of arthroscopy of left shoulder History of cystoscopy History of esophagogastroduodenoscopy (EGD) Hx of colonoscopy History of tumor Deviated septum History of tonsillectomy H/O right knee surgery Family History Father Osteoporosis Heart disease Diabetes mellitus HTN (hypertension) CVD (cardiovascular disease) Mother Diabetes mellitus Other Substance use disorder Social History Housing: House Are you a primary day care provider to a significant other at home: No Do you presently have visiting nurse or other home services: No Alcohol intake: never Patient Tobacco Use Status: Former Tobacco user Years Smoked: 5 years e-Cigarette/Vaping Use: Never Used Second Hand Smoke Exposure: No service: No Current occupational status: retired Cognitive needs: No Hearing needs: Yes Vision needs: Yes Review of Systems Const Details: - Neurologic: Reports dizziness, balance issues, instances of near falls; Denies memory loss, except for slight word-finding difficulty. - Ears, Nose, Throat: Reports hearing loss; Denies ear pain and infections. - Genitourinary: Reports nocturia. - Musculoskeletal: Reports difficulty and dizziness when bending down. Assessment & Plan Assessment & Plan (1) Vertigo: Code(s): R42 - Dizziness and giddiness Category: Medical Plan: I explained to the patient that her symptoms are highly suggestive of Benign Paroxysmal Positional Vertigo (BPPV), a condition stemming from dysfunction in the balance mechanisms of the inner ear. I reassured her that this is a benign condition, though it requires caution to prevent falls and exacerbating episodes of dizziness. I emphasized the necessity of a brain scan to confirm that her symptoms are not linked to other potential causes, given the progression over several months. I discussed strategies like avoiding rapid head movements and utilizing stair railings for safety. We also touched upon her gradual hearing lo ss, proposing future evaluation. I provided guidance to ensure safe navigation and highlighted the importance of taking precautions to stand up slowly to avoid triggering dizziness. This visit emphasized managing her current symptomatology with close monitoring to ensure proper follow-up. (2) Gait disturbance: Code(s): R26.9 - Unspecified abnormalities of gait and mobility Category: Medical (3) Dizziness: Code(s): R42 - Dizziness and giddiness Category: Medical Plan Impression and recommendations: Probably BPPV. As it is slowly getting worse, an MRI is ordered to r/o any other pathology like vascular disease or focal vestibular lesion Orders: Orders MR head/brain wo/w con Today R26.9 - Unspecified abnormalities of gait and mobility, R42 - Dizziness and giddiness Coding Level of Care Code New Pt Level 4 (41749) Diagnoses Vertigo R42 Gait disturbance R26.9 Dizziness R42
--- OUTSIDE RECORDS SUMMARY | 2025-03-30 13:13 | XMS_ITS | Patient Health Record ---
Author Organization [facility] Address [address] [place] [address] Care Team Providers Care Sock Examiner Name Role Phone Mika HILL, [facility] Primary Care Provider Teodoro Mcgee [...] Once a day for 30 day(s) Active Washburn 3 1000 MG 1 capsule Orally Onc e a day for 30 day(s) Active Immunizations Vaccine Route Administration Date Status Comme nts Influenza Unknown 04/07/2023 Administered Problems Problem Type SNOMED Code ICD Code Onset Dates Problem Status W/U Status Risk Notes Problem 350219871 Colon cancer screening (Z12.11) Active confirmed Problem 073060275 Long-term curren t use of high risk medication other than anticoagulant (Z79.899) Active confirmed Problem 151538825 Gastroesophageal reflux disease, unspecified whether esophagitis present (K21.9) Active confirmed Plan Of Treatment Future Test Test Name Order Date COLONOSCOPY 08/18/2012 COLONOSCOPY 04/20/2023 Insurance Providers Payer Name Payer Address Payer Phone Subscriber Number Group Number Insured Name Patient Relationship to Insured Coverage Start Date Coverage End Date MEDICARE OF [place] [address] [place] [address] [id number] BERYL DUNNE Self - patient is the insured [employer] [address] [place] [address] [phone] [id number] BERYL DUNNE Self - patient is the insured Medical (General) History Medical History History ICD Code Colonoscopy 11/03/12, normal, ten-year fol lowup diverticulosis enviromental allergies arthritis Hypertension Gastroesophageal reflux dise ase, EGD 01/19, no H. pylori or Crooks's esophagus. 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
--- OUTSIDE RECORDS SUMMARY | 2025-03-30 13:13 | XMS_ITS | Patient Health Record ---
Author Organization [facility] Address [address] [place] [address] Care Team Providers Care Supervising Broker Name Role Phone Mika HILL, [facility] Primary Care Provider Unavailabl e Black, Flory Unavailable [phone] Allergies Allergen (clinical drug ingredient) Drug/Non Drug Allergy documented on EMR Reaction Allergy Type Onset Date Status Keflex dizziness Drug Allergy Active Penicillin Unknown Drug Allergy Active Reason For Referral No Information Medications Medication SIG (Take, Route, Frequency, Duration) Notes Start Date End Date Status Mobic 15 MG 1 tablet Orally Once a day; Duration: 30 Active Peral[place]-3 1000 MG Orally Acti ve ASO Ankle/Foot Stablizing AFO As directed Wear Daily; Duration: as needed 10/22/2017 Active Atorvastatin Calcium 20 MG Orally Active Omeprazole 20 MG Orally Act yolis Aspir-81 Active Fexofenadine HCl 180 MG Orally Active ASO Ankle/Foot Stablizing AFO As directed Wear Daily; Duration: as needed 12/22/2019 Active Social History Tobacco [...] Problem Status W/U Status Risk Notes Problem Acquired hammer toe of right foot (9863866854512 105) Hammer toe of right foot (M20.41) Active confirmed Problem Acquired hammer toe of left foot (6653318913320 103) Hammer toe of left foot (M20.42) Active confirmed Problem 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 Plan Of Treatment No Information Insurance Providers Payer Name Payer Address Payer Phone Subscriber Number Group Number Insured Name Patient Relationship to Insured Coverage Start Date Coverage End Date Medicare National [employer]t [employer] [address] [place] [address] [id number] Cherie Moreno Self - patient is the insured [employer] [address] [place] [address] [id number] Cherie Moreno Self - patient is the insured Medical (General) History Medical History History ICD Code Arthritis Back,Hip,and Knee pain Broken bones Cancer Reflux ( GERD) Measles Mumps Chicken pox Allergies Surgical History Surgery Date(Month/Year) tonsillectomy 1972 knee repair 1982
== END 2025-03-30 12:44 | disposition home or self-care (01) ==
LOC: HO.HSM 12:17
PROVIDERS: PCP Internal Medicine; Visit Provider Psychiatry & Neurology Neurology
DX: R42 Dizziness and giddiness (principal); R26.9 Unspecified abnormalities of gait and mobility
CPT/HCPCS: 99204

== ENCOUNTER → 2025-03-30 12:17 | Outpatient (BNVA) | payer MEDICARE, OTHER, SELFPAY | PROVIDERS: PCP Internal Medicine; Visit Provider Psychiatry & Neurology Neurology | DX: R42 Dizziness and giddiness (principal); R26.9 Unspecified abnormalities of gait and mobility | CPT/HCPCS: 99202 ==

== ENCOUNTER 2025-04-13 15:38 | Outpatient (REF) | payer MEDICARE, OTHER, SELFPAY ==
--- NOTE | ~2025-04-13 | MR_ITS ---
EXAMINATION: MR BRAIN WITHOUT THEN WITH IV CONTRAST CLINICAL INFORMATION: R26.9 - Unspecified abnormalities of gait and mobility COMPARISON: None available. TECHNIQUE: Multiplanar, multisequence MRI of the brain was obtained before and after the intravenous administration of 7.5 cc gadolinium Gadavist. FINDINGS: Brain parenchyma: Mild scattered and confluent T2/FLAIR hyperintensity in the white matter of bilateral cerebral hemispheres, likely a manifestation of small vessel ischemic changes. No evidence of acute infarct, mass lesion or parenchymal hemorrhage. No abnormal parenchymal enhancement. Ventricles/extra-axial spaces: Mild generalized prominence of the brain sulci and ventricles is likely age appropriate. No hydrocephalus. No extra-axial fluid collection. Extracranial structures: Arterial flow voids in the skull base are preserved. Bilateral orbits are unremarkable. Minimal mucosal thickening in the paranasal sinuses. Minimal bilateral mastoid effusion. MR/MR head/brain wo/w con IMPRESSION: No acute intracranial findings. No abnormal parenchymal enhancement. No hydrocephalus. Electronically signed by: Ibis Solano MD 04/13/2025 04:49 PM EDT
--- OUTSIDE RECORDS SUMMARY | 2025-04-13 18:46 | XMS_ITS | Patient Health Record ---
Author Organization [facility] Address [address] [place] [address] Care Team Providers Care Broadcast Journalist Name Role Phone Mika HILL, [facility] Primary Care Provider Teodoro Mcgee Jr Unavailable [phone] Allergies Allergen (clinical drug ingredient) Drug/Non Drug [...] Once a day for 30 day(s) Active Kamuela 3 1000 MG 1 capsule Orally Onc e a day for 30 day(s) Active Immunizations Vaccine Route Administration Date Status Comme nts Influenza Unknown 04/07/2023 Administered Problems Problem Type SNOMED Code ICD Code Onset Dates Problem Status W/U Status Risk Notes Problem 110704190 Colon cancer screening (Z12.11) Active confirmed Problem 801907699 Long-term curren t use of high risk medication other than anticoagulant (Z79.899) Active confirmed Problem 875678580 Gastroesophageal reflux disease, unspecified whether esophagitis present (K21.9) Active confirmed Plan Of Treatment Future Test Test Name Order Date COLONOSCOPY 08/18/2012 COLONOSCOPY 04/20/2023 Insurance Providers Payer Name Payer Address Payer Phone Subscriber Number Group Number Insured Name Patient Relationship to Insured Coverage Start Date Coverage End Date MED[place]ARE OF [place] [address] [place] [address] [id number] BERYL DUNNE Self - patient is the insured [employer] [address] [place] [address] [id number] BERYL DUNNE Self - patient is the insured Medical (General) History Medical History History ICD Code Colonoscopy 11/03/12, normal, ten-year fol lowup diverticulosis enviromental allergies arthritis Hypertension Gastroesophageal reflux dise ase, EGD 01/19, no H. pylori or Crooks's esophagus. 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
--- OUTSIDE RECORDS SUMMARY | 2025-04-13 18:46 | XMS_ITS | Patient Health Record ---
Author Organization [facility] Address [address] [place] [address] Care Team Providers Care Pharmacometrician Name Role Phone Mika HILL, [facility] Primary Care Provider Unavailabl e Black, Flory Unavailable [phone] Allergies Allergen (clinical drug ingredient) Drug/Non Drug Allergy documented on EMR Reaction Allergy Type Onset Date Status Keflex dizziness Drug Allergy Active Penicillin Unknown Drug Allergy Active Reason For Referral No Information Medications Medication SIG (Take, Route, Frequency, Duration) Notes Start Date End Date Status Mobic 15 MG 1 tablet Orally Once a day; Duration: 30 Active [place]-3 1000 MG Orally Acti ve ASO Ankle/Foot [...] Problem Acquired hammer toe of right foot (8900896907438 105) Hammer toe of right foot (M20.41) Active confirmed Problem Acquired hammer toe of left foot (0529249364789 103) Hammer toe of left foot (M20.42) Active confirmed Problem 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 Plan Of Treatment No Information Insurance Providers Payer Name Payer Address Payer Phone Subscriber Number Group Number Insured Name Patient Relationship to Insured Coverage Start Date Coverage End Date Medicare National Govt Sv[employer] Inc [address] [place] [address] [id number] Cherie Moreno Self - patient is the insured [employer] [address] [place] [address] [id number] Cherie Moreno Self - patient is the insured Medical (General) History Medical History History ICD Code Arthritis Back,Hip,and Knee pain Broken bones Cancer Reflux ( GERD) Measles Mumps Chicken pox Allergies Surgical History Surgery Date(Month/Year) tonsillectomy 1972 knee repair 1982
== END 2025-04-13 15:39 | disposition home or self-care (01) ==
LOC: HO.MRI 15:38
PROVIDERS: PCP Internal Medicine; Visit Provider Psychiatry & Neurology Neurology
DX: R26.9 Unspecified abnormalities of gait and mobility (principal); R42 Dizziness and giddiness
CPT/HCPCS: 70553; A9585

== ENCOUNTER → 2025-04-13 15:51 | Outpatient (BNV) | payer MEDICARE, OTHER, SELFPAY | PROVIDERS: PCP Internal Medicine; Visit Provider Radiology Body Imaging | DX: R26.9 Unspecified abnormalities of gait and mobility (principal); R42 Dizziness and giddiness | CPT/HCPCS: 70553 ==

== ENCOUNTER → 2025-05-17 10:09 | Outpatient (AMB) | payer MEDICARE, OTHER, SELFPAY ==
--- NOTE | 2025-05-17 10:21 | A.OFFVIS_ITS ---
Intake Visit Reasons: after MRI Allergies cephalexin (From KEFLEX) Allergy (Unknown, Verified 01/04/25 10:18) SPACEY, dizzy, lightheaded Penicillins (PENICILLINS) Allergy (Unknown, Verified 01/04/25 10:18) Unknown, childhood occurrence HPI Comments Details: The patient is a 75-year-old female presenting with dizziness. Dizziness episodes have been occurring intermittently, described as coming and going. An MRI was conducted recently and showed no tumor and was deemed normal. The dizziness is associated with the patient's diagnosis of essential hypertension, with noted minor changes due to high blood pressure. She is currently managing her blood pressure with medication. Instructions were provided to perform specific vestibular exercises to mitigate the dizziness. The exercises are intended to aid training the vestibular system to minimize dizziness occurrences, while caution is advised to prevent falls during episodes. [facility] Medical History (Updated 05/17/25 @ 10:22 by Robert Brennan MD) Dizziness Abnormal gait due to muscle weakness Left arm pain HTN (hypertension) Diverticulosis Dermatofibrosarcoma Arthritis Back pain GERD (gastroesophageal reflux disease) Elevated cholesterol Surgical History History of arthroscopy of left shoulder History of cystoscopy History of esophagogastroduodenoscopy (EGD) Hx of colonoscopy History of tumor Deviated septum History of tonsillectomy H/O right knee surgery Family History Father Osteoporosis Heart disease Diabetes mellitus HTN (hypertension) CVD (cardiovascular disease) Mother Diabetes mellitus Other Substance use disorder Social History Housing: House Are you a primary pet care assistant to a significant other at home: No Do you presently have visiting nurse or other home services: No Alcohol intake: never Patient Tobacco Use Status: Former Tobacco user Years Smoked: 5 years e-Cigarette/Vaping Use: Never Used Second Hand Smoke Exposure: No service: No Current occupational status: retired Cognitive needs: No Hearing needs: Yes Vision needs: Yes Review of Systems Const Details: Constitutional:?No fever, chills, fatigue, weight loss, or night sweats. HEENT:?No headache, vision changes, hearing loss, nasal congestion, sore throat. Neurological:?No dizziness, syncope, seizures, numbness, tingling, weakness, tremors, memory loss. Psychiatric:?No anxiety, depression, mood swings, sleep disturbance, or hallucinations. Endocrine:?No heat/cold intolerance, polydipsia, polyuria, or hair/skin changes. Hematologic/Lymphatic:?No easy bruising, bleeding, or lymphadenopathy. Integumentary (Skin):?No rash, lesions, itching, or color changes. ? Physical Exam Neuro Other: Mental Status: Alert and oriented to person, place, and time. Normal attention. Normal spontaneous speech, fluency, and comprehension. No obvious issues with mood and memory. Affect is appropriate. Cranial Nerves: CN II: Visual mosher full to confrontation, visual acuity intact. CN III, IV, : Pupils equal, round, reactive to light and accommodation. Extraocular movements are normal. CN V: Facial sensation is normal. CN VII: Facial movements symmetrical. CN VIII: Hearing intact to bedside conversation is normal. CN IX, X: Palate elevates symmetrically. CN XI: Shoulder shrug and head turn symmetrical. CN XII: Tongue midline without atrophy or fasciculations. Extrapyramidal: Full facial expressions and blinking. No rigidity. Movements are appropriate with no tremor or abnormality. Speech: Normal; no dysarthria or tremor. 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
--- OUTSIDE RECORDS SUMMARY | 2025-05-17 12:01 | XMS_ITS | Patient Health Record ---
Author Organization [facility] Address [address] [place] [address] Care Team Providers Care Speech Pathology Supervisor Name Role Phone Mika HILL, [facility] Primary Care Provider Unavailabl e Black, Flory Unavailable [phone] Allergies Allergen (clinical drug ingredient) Drug/Non Drug Allergy documented on EMR Reaction Allergy Type Onset Date Status Keflex dizziness Drug Allergy Active Penicillin Unknown Drug Allergy Active Reason For Referral No Information Medications Medication SIG (Take, Route, Frequency, Duration) Notes Start Date End Date Status Mobic 15 MG 1 tablet Orally Once a day; Duration: 30 Active [place]-3 1000 MG Orally Acti ve ASO Ankle/Foot [...] Problem Acquired hammer toe of right foot (6676744515516 105) Hammer toe of right foot (M20.41) Active confirmed Problem Acquired hammer toe of left foot (1035191736097 103) Hammer toe of left foot (M20.42) Active confirmed Problem 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 Plan Of Treatment No Information Insurance Providers Payer Name Payer Address Payer Phone Subscriber Number Group Number Insured Name Patient Relationship to Insured Coverage Start Date Coverage End Date Medicare National Govt Svcs Inc [address] [facility] [place] [address] [id number] Cherie Moreno Self - patient is the insured [employer] [address] [place] [address] [phone] [id number] Cherie Moreno Self - patient is the insured Medical (General) History Medical History History ICD Code Arthritis Back,Hip,and Knee pain Broken bones Cancer Reflux ( GERD) Measles Mumps Chicken pox Allergies Surgical History Surgery Date(Month/Year) tonsillectomy 1972 knee repair 1982
--- OUTSIDE RECORDS SUMMARY | 2025-05-17 12:01 | XMS_ITS | Patient Health Record ---
Author Organization [facility] Address [address] [place] [address] Care Team Providers Care Senior Technical Analyst Name Role Phone Mika HILL, [facility] Primary Care Provider Teodoro Mcgee [...] take with fruit juices. Orally Once a day; Duration: 30 day(s) Active MiraLax (colon prep) 17 GM/SCOOP mixed with Gatorade or Crystal Light Orally begin at 5:00 p.m. the day before the procedure; Duration: 1 day 04/20/2023 Active Atorvastatin Calcium 20 MG 1 tablet Oral ly Once a day; Duration: 30 day(s) Active Omeprazole 20 MG 1 capsule 30 minutes before morning meal Orally Once a day; Duration: 30 day(s) Active Losartan Potassium 25 MG 1 tablet Orally Once a day; Duration: 30 day(s) Active Aspirin 81 81 MG 1 tablet Orally Once a day; Duration: 30 day(s) Active Lena 3 1000 MG 1 capsule Orally Onc e a day; Duration: 30 day(s) Active Immunizations Vaccine Route Administration Date Status Comme nts Influenza Unknown 04/07/2023 Administered Problems Problem Type SNOMED Code ICD Code Onset Dates Problem Status W/U Status Risk Notes Problem Colon cancer screening (982420064) Colon cancer screening (Z12.11) Active confirmed Problem Long-term current use of drug therapy (353808483) Long-term current use of high risk medication other than anticoagulant (Z79.899) Active confirmed Problem Gastroesophageal reflux disease (789225337) Gastroesophageal reflux disease, unspecified whether esophagitis present (K21.9) Active confirmed Plan Of Treatment Future Test Test Name Order Date COLONOSCOPY 08/18/2012 COLONOSCOPY 04/20/2023 Insurance Providers Payer Name Payer Address Payer Phone Subscriber Number Group Number Insured Name Patient Relationship to Insured Coverage Start Date Coverage End Date MED[place]ARE OF [place] [address] [place] [address] [id number] JOSLYN LEIJACLARKON Self - patient is the insured [employer] [address] [place] [address] [id number] [employer] BERYL LEIJA Self - patient is the insured Medical (General) History Medical History History ICD Code Colonoscopy 11/03/12, normal, ten-year fol lowup diverticulosis enviromental allergies arthritis Hypertension Gastroesophageal reflux dise ase, EGD 01/19, no H. pylori or Crooks's esophagus. 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
== END ==
LOC: HO.HSM 10:10
PROVIDERS: PCP Internal Medicine; Visit Provider Psychiatry & Neurology Neurology
DX: H81.10 Benign paroxysmal vertigo, unspecified ear (principal); I67.89 Other cerebrovascular disease
CPT/HCPCS: 99214

== ENCOUNTER → 2025-05-17 10:09 | Outpatient (BNVA) | payer MEDICARE, OTHER, SELFPAY | PROVIDERS: PCP Internal Medicine; Visit Provider Psychiatry & Neurology Neurology | DX: I10 Essential (primary) hypertension (principal); I67.89 Other cerebrovascular disease; H81.10 Benign paroxysmal vertigo, unspecified ear | CPT/HCPCS: 99212 ==

== ENCOUNTER 2025-07-05 12:53 | Outpatient (AMB) | payer MEDICARE, OTHER, SELFPAY ==
--- NOTE | 2025-07-05 13:01 | MHC.PC.OV ---
Vital Signs 07/05/25 13:03 Height 5 ft 0.5 in Weight 170 lb BMI 32.7 BP 138/80 Blood Pressure Location Rt brachial Position Sitting Pulse 81 Pulse Source Pulse Oximeter Pulse Oximetry (%) 96 Intake Visit Reasons: 6m Allergies cephalexin (From KEFLEX) Allergy (Unknown, Verified 07/05/25 13:05) SPACEY, dizzy, lightheaded Penicillins (PENICILLINS) Allergy (Unknown, Verified 07/05/25 13:05) Unknown, childhood occurrence Medication List - Last Reconciled 07/05/25 by Nelson Brennan MD aspirin (Adult Aspirin Regimen) 81 mg PO DAILY atorvastatin 20 mg PO DAILY 90 days clobetasol 0.05% grams topical ibuprofen 400 mg PO Q8H losartan 25 mg PO DAILY 90 days omega-3 fatty acids-vitamin E ([place]-3 Fish Oil) PO omeprazole 20 mg PO DAILY 90 days pimecrolimus 1% appl topical BID Tobacco use date assessed: 09/06/24 Fall risk assessment: No Falls in past year Last assessed Fall Risk: 07/05/25 Dental Screening Dental Screen Date: 09/06/24 HPI HPI Comments History of Present Illness Details History of Present Illness The patient is a 75 year old individual presenting for chronic disease management and evaluation of a new skin lesion. Hypertension: - The patient is managed on losartan 25 mg for hypertension. - The patient has not been monitoring blood pressure regularly at home but plans to resume. Hyperlipidemia: - The patient is taking atorvastatin 20 mg for a lipid disorder. Gastroesophageal Reflux Disease: - The patient takes omeprazole 20 mg for acid reflux. Osteopenia: - The patient has a history of osteopenia and takes vitamin D. Irritable Bowel Syndrome: - The patient has irritable bowel syndrome with intermittent diarrhea and constipation. - The patient reports that bowel movements have been different since stopping smoothies a few years ago, attributing it to decreased fruit intake. Alopecia: - The patient is being followed by a graphics specialist every three months for hair loss. - The patient is using a topical cream which is preventing further hair loss but not restoring it. - The patient notes that for the type of alopecia the patient has, hair will not grow back once lost. Skin Lesion: - The patient has a new skin lesion of recent onset that has caused concern. looks like seborric keratosis - The patient sees a graphics specialist regularly but is unsure of the next appointment date. Medical History: - Hyperlipidemia - Hypertension - Gastroesophageal reflux disease - Osteopenia - Irritable bowel syndrome - Alopecia Medications: - Atorvastatin 20 mg for hyperlipidemia. - Losartan 25 mg for hypertension. - Omeprazole 20 mg for acid reflux. - Vitamin D supplement. - Topical cream for hair loss. [facility] Medical History Dizziness Abnormal gait due to muscle weakness Left arm pain HTN (hypertension) Diverticulosis Dermatofibrosarcoma Arthritis Back pain GERD (gastroesophageal reflux disease) Elevated cholesterol Surgical History History of arthroscopy of left shoulder History of cystoscopy History of esophagogastroduodenoscopy (EGD) Hx of colonoscopy History of tumor Deviated septum History of tonsillectomy H/O right knee surgery Family History Father Osteoporosis Heart disease Diabetes mellitus HTN (hypertension) CVD (cardiovascular disease) Mother Diabetes mellitus Other Substance use disorder Social History Housing: House Are you a primary care transitions nurse to a significant other at home: No Do you presently have visiting nurse or other home services: No Alcohol intake: never Patient Tobacco Use Status: Former Tobacco user Years Smoked: 5 years e-Cigarette/Vaping Use: Never Used Second Hand Smoke Exposure: No service: No Current occupational status: retired Cognitive needs: No Hearing needs: Yes Vision needs: Yes Questionnaire Thrive Questionnaire Date Thrive assessed: 08/30/24 I am a: Patient What is your living situation today?: I have a steady place to live Within the past 12 months, did the food you bought not last and you didn't have the money to get more?: Sometimes True Within the past 12 months, did you worry whether your food would run out before you got money to buy more?: Sometimes True Do you have trouble paying for medicines?: No Do you have trouble getting transportation to medical appointments?: No Do you have trouble paying your heating and electricity bill?: Yes Do you have trouble taking care of your child, family member or friend?: No Do you have trouble with day-to-day activities such as bathing, preparing meals, shopping, managing finances, etc.?: No Are you currently unemployed and looking for a job?: No Are you interested in more education?: No Please select the resources that you would like help with: None Currently or been in a relationship where the following occur: I choose not to answer THRIVE Score: 3 ANGELICA-7 AMB Questionnaire ANGELICA-7 Date ANGELICA - 7 assessed: 09/06/24 Source: Developed by Drs. Genaro Kramer, Cira Nino, Dustin Malagon and colleagues, with an educational shivani from [employer]. Review of Systems Narrative Review of Systems . - General: No fever no chills - Neurological: No headaches no dizziness - Ear nose throat: No sore throat no hearing difficulty no ear pain - Cardiovascular: No syncope, no chest pain, no palpitations - Gastrointestinal: No nausea vomiting or diarrhea - Endocrine: No polyuria polydipsia no heat intolerance - Genitourinary: No dysuria , no blood in urine Physical exam (Primary Care) Vital Signs: Last Vital Signs Pulse 81 07/05/25 13:03 BP 138/80 07/05/25 13:03 Pulse Ox 96 07/05/25 13:03 BMI result Body Mass Index 32.7 Tobacco/Smoking Status: Tobacco use Status Tobacco use date assessed 09/06/24 07/05/25 13:02 Patient Tobacco Use Status Former Tobacco user 07/05/25 13:02 e-Cigarette/Vaping Use Never Used 07/05/25 13:02 Thrive Assessment: Date of Thrive Assessment Date Thrive assessed 08/30/24 07/05/25 13:02 Currently or been in a relationship where the following occur: I choose not to answer Narrative Physical Exam General: No acute distress HEENT: No acute findings Neck: Supple Respiratory system: Able to talk in full sentences, no audible wheeze Cardiovascular: S1-S2 regular in rate and rhythm Gastrointestinal: Bowel movements different than usual, history of irritable bowel Extremities: Right ankle painful, no swelling 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 oriented x3 motor intact Skin: Normal turgor, seborrheic keratosis noted right shoulder Coding Level of Care Code Est Pt Level 4 (88757) Complex visit Add On G2211 Diagnoses Hypertension, essential I10 Lipid disorder E78.9 Osteopenia, unspecified location M85.80 Osteopenia location: unspecified Gastroesophageal reflux disease without esophagitis K21.9 Esophagitis presence: without esophagitis Irritable bowel syndrome with diarrhea K58.0 Irritable bowel syndrome type: with diarrhea Hair loss L65.9 Seborrheic keratoses L82.1 Assessment & Plan Assessment & Plan (1) Hypertension, essential: Code(s): I10 - Essential (primary) hypertension Category: Medical (2) Lipid disorder: Code(s): E78.9 - Disorder of lipoprotein metabolism, unspecified Category: Medical (3) Osteopenia: Code(s): M85.80 - Other specified disorders of bone density and structure, unspecified site Category: Medical Qualifiers: Osteopenia location: unspecified Qualified Code(s): M85.80 - Other specified disorders of bone density and structure, unspecified site (4) GERD (gastroesophageal reflux disease): Code(s): K21.9 - Gastro-esophageal reflux disease without esophagitis Category: Medical Qualifiers: Esophagitis presence: without esophagitis Qualified Code(s): K21.9 - Gastro-esophageal reflux disease without esophagitis (5) Irritable bowel syndrome: Code(s): K58.9 - Irritable bowel syndrome, unspecified Category: Medical Qualifiers: Irritable bowel syndrome type: with diarrhea Qualified Code(s): K58.0 - Irritable bowel syndrome with diarrhea (6) Hair loss: Code(s): L65.9 - Nonscarring hair loss, unspecified Category: Medical (7) Seborrheic keratoses: Code(s): L82.1 - Other seborrheic keratosis Category: Medical Plan Problem List - Hypertension - Hyperlipidemia - Gastroesophageal reflux disease - Osteopenia - Irritable bowel syndrome - Alopecia - Seborrheic keratosis - Health Maintenance: Lab monitoring Plan - An order for lab work will be placed for the patient to complete now and again before the next appointment. - For the new skin lesion, which appears to be a benign seborrheic keratosis, the patient will have it evaluated by the graphics specialist at the next follow-up appointment; no urgent action is needed. however biopsy is sometimes needed to confirm diagnosis, patient was notified - For alopecia, continue current management and follow up with dermatology every 3 months. - Continue current medications for hypertension, hyperlipidemia, and GERD. - Encourage more regular home blood pressure monitoring. - Follow-up appointment is scheduled for January. Orders: Orders Complete Blood Count Auto Diff Today E78.9 - Disorder of lipoprotein metabolism, unspecified, I10 - Essential (primary) hypertension, K21.9 - Gastro-esophageal reflux disease without esophagitis, K58.0 - Irritable bowel syndrome with diarrhea, M85.80 - Other specified disorders of bone density and structure, unspecified site Comprehensive [place]. Panel Fast Today E78.9 - Disorder of lipoprotein metabolism, unspecified, I10 - Essential (primary) hypertension, K21.9 - Gastro-esophageal reflux disease without esophagitis, K58.0 - Irritable bowel syndrome with diarrhea, M85.80 - Other specified disorders of bone density and structure, unspecified site Lipid Panel Today E78.9 - Disorder of lipoprotein metabolism, unspecified, I10 - Essential (primary) hypertension, K21.9 - Gastro-esophageal reflux disease without esophagitis, K58.0 - Irritable bowel syndrome with diarrhea, M85.80 - Other specified disorders of bone density and structure, unspecified site Complete Blood Count Auto Diff 5 Months E78.9 - Disorder of lipoprotein metabolism, unspecified, I10 - Essential (primary) hypertension, K21.9 - Gastro-esophageal reflux disease without esophagitis, K58.0 - Irritable bowel syndrome with diarrhea, L65.9 - Nonscarring hair loss, unspecified, M85.80 - Other specified disorders of bone density and structure, unspecified site Vitamin D 25-OH (D2 and D3) 5 Months E78.9 - Disorder of lipoprotein metabolism, unspecified, I10 - Essential (primary) hypertension, K21.9 - Gastro-esophageal reflux disease without esophagitis, K58.0 - Irritable bowel syndrome with diarrhea, L65.9 - Nonscarring hair loss, unspecified, M85.80 - Other specified disorders of bone density and structure, unspecified site TSH reflex Free T4 5 Months E78.9 - Disorder of lipoprotein metabolism, unspecified, I10 - Essential (primary) hypertension, K21.9 - Gastro-esophageal reflux disease without esophagitis, K58.0 - Irritable bowel syndrome with diarrhea, L65.9 - Nonscarring hair loss, unspecified, M85.80 - Other specified disorders of bone density and structure, unspecified site Comprehensive [place]. Panel Fast 5 Months E78.9 - Disorder of lipoprotein metabolism, unspecified, I10 - Essential (primary) hypertension, K21.9 - Gastro-esophageal reflux disease without esophagitis, K58.0 - Irritable bowel syndrome with diarrhea, L65.9 - Nonscarring hair loss, unspecified, M85.80 - Other specified disorders of bone density and structure, unspecified site Lipid Panel 5 Months E78.9 - Disorder of lipoprotein metabolism, unspecified, I10 - Essential (primary) hypertension, K21.9 - Gastro-esophageal reflux disease without esophagitis, K58.0 - Irritable bowel syndrome with diarrhea, L65.9 - Nonscarring hair loss, unspecified, M85.80 - Other specified disorders of bone density and structure, unspecified site Medications: Refilled atorvastatin 20 mg PO DAILY 90 tabs 1RF 90 days E78.9 - Disorder of lipoprotein metabolism, unspecified losartan 25 mg PO DAILY 90 tabs 1RF 90 days omeprazole 20 mg PO DAILY 90 caps 1RF 90 days
[2025-07-05 13:03] VITALS: BP 138/80; PULSE 81; O2SAT 96; BMI 32.7
--- OUTSIDE RECORDS SUMMARY | 2025-07-05 15:19 | XMS_ITS | Patient Health Record ---
Author Organization [facility] Address [address] [place] [address] Care Team Providers Care Architectural Draftsperson Name Role Phone [facility], [facility] Primary [facility] Provider Teodoro Mcgee Jr Unavailable Allergies Allergen (clinical drug ingredient) Drug/Non Drug Allergy documented on EMR Reaction Allergy Type Onset Date Status Keflex Unknown Drug Allergy Active penicillamine Penicillamine Unknown Drug Allergy Active Reason For Referral No Information Medications Medication SIG (Take, Route, Frequency, Duration) Notes Start Date End Date Status Fexofenadine HCl 180 MG Tablet 1 tablet Swallow whole with water; do not take with fruit juices. Orally Once a day; Duration: 30 day(s) Active MiraLax (colon prep) 17 GM/SCOOP Powder mixed with Gatorade or Crystal Light Orally begin at 5:00 p.m. the day before the procedure; Duration: 1 day 04/20/2023 Active Atorvastatin Calcium 20 MG Tablet 1 tablet Orally Once a day; Duration: 30 day(s) Active Omeprazole 20 MG Capsule Delayed Release 1 capsule 30 minutes before morning meal Orally Once a day; Duration: 30 day(s) Active Losartan Potassium 25 MG Tablet 1 tablet Orally Once a day; Duration: 30 day(s) Active Aspirin 81 81 MG Tablet Delayed Release 1 tablet Orally Once a day; Duration: 30 day(s) Active Reeds 3 1000 MG Capsule 1 capsule Orally Once a day; Duration: 30 day(s) Active Immunizations Vaccine Route Administration Date Status Comme nts Influenza Unknown 04/07/2023 Administered Social History Social History Additional Details Category Social Info Options Details Miscellaneous: 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 Problems Problem Type SNOMED Code ICD Code Onset Dates Problem Status W/U Status Risk Notes Problem Colon cancer screening (141461819) Colon cancer screening (Z12.11) Active confirmed Problem Long-term current use of drug therapy (448400022) Long-term current use of high risk medication other than anticoagulant (Z79.899) Active confirmed Problem Gastroesophageal reflux disease (674159286) Gastroesophageal reflux disease, unspecified whether esophagitis present (K21.9) Active confirmed Plan Of Treatment Future Test Test Name Order Date COLONOSCOPY 08/18/2012 COLONOSCOPY 04/20/2023 Insurance Providers Payer Name Payer Address Payer Phone Subscriber Number Group Number Insured Name Patient Relationship to Insured Coverage Start Date Coverage End Date MEDICARE OF [place] [address] [place] [address] [id number] BERYL DUNNE Self - patient is the insured [employer] [address] [place] [address] [id number] BERYL DUNNE Self - patient is the insured Medical (General) History Medical History History ICD Code Colonoscopy 11/03/12, normal, ten-year fol lowup diverticulosis enviromental allergies arthritis Hypertension Gastroesophageal reflux dise ase, EGD 01/19, no H. pylori or Crooks's esophagus. 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
== END 2025-07-05 13:22 | disposition home or self-care (01) ==
LOC: HO.HMCC 12:54
PROVIDERS: PCP Internal Medicine; Visit Provider Internal Medicine
DX: I10 Essential (primary) hypertension (principal); E78.9 Disorder of lipoprotein metabolism, unspecified; M85.80 Other specified disorders of bone density and structure, unspecified site; K21.9 Gastro-esophageal reflux disease without esophagitis; K58.0 Irritable bowel syndrome with diarrhea; L65.9 Nonscarring hair loss, unspecified; L82.1 Other seborrheic keratosis

== ENCOUNTER → 2025-07-05 12:53 | Outpatient (BNVA) | payer MEDICARE, OTHER, SELFPAY | PROVIDERS: PCP Internal Medicine; Visit Provider Internal Medicine | DX: I10 Essential (primary) hypertension (principal); E78.9 Disorder of lipoprotein metabolism, unspecified; M85.80 Other specified disorders of bone density and structure, unspecified site | CPT/HCPCS: 99212 ==

== ENCOUNTER 2025-07-06 08:19 | Outpatient (REF) | payer MEDICARE, OTHER, SELFPAY ==
[2025-07-06 08:28] LABS: MANUAL DIFF FLAG NO
--- OUTSIDE RECORDS SUMMARY | 2025-07-06 08:36 | XMS_ITS | Patient Health Record ---
Author Organization [facility] Address [address] [place] [address] Care Team Providers Care Manager Bar Name Role Phone Mika [facility], [facility] Primary Care Provider Unavailabl e Black, Flory Unavailable [phone] Allergies Allergen (clinical drug ingredient) Drug/Non Drug Allergy documented on EMR Reaction Allergy Type Onset Date Status Keflex dizziness Drug Allergy Active Penicillin Unknown Drug Allergy Active Reason For Referral No Information Medications Medication SIG (Take, Route, Frequency, Duration) Notes Start Date End Date Status Mobic 15 MG 1 tablet Orally Once a day; Duration: 30 Active [place]-3 1000 MG Orally Acti ve ASO Ankle/Foot [...] Problem Acquired hammer toe of right foot (3380339007302 105) Hammer toe of right foot (M20.41) Active confirmed Problem Acquired hammer toe of left foot (5155160086094 103) Hammer toe of left foot (M20.42) Active confirmed Problem 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 Plan Of Treatment No Information Insurance Providers Payer Name Payer Address Payer Phone Subscriber Number Group Number Insured Name Patient Relationship to Insured Coverage Start Date Coverage End Date Medicare National [employer]t [employer] [address] [place] [address] [id number] Cherie Moreno Self - patient is the insured [employer] [address] [place] [address] [id number] Cherie Moreno Self - patient is the insured Medical (General) History Medical History History ICD Code Arthritis Back,Hip,and Knee pain Broken bones Cancer Reflux ( GERD) Measles Mumps Chicken pox Allergies Surgical History Surgery Date(Month/Year) tonsillectomy 1972 knee repair 1982
--- OUTSIDE RECORDS SUMMARY | 2025-07-06 08:36 | XMS_ITS | Patient Health Record ---
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 Problems Problem Type SNOMED Code ICD Code Onset Dates Problem Status W/U Status Risk Notes Problem Colon cancer screening (462193569) Colon cancer screening (Z12.11) Active confirmed Problem Long-term current use of drug therapy (126204566) Long-term current use of high risk medication other than anticoagulant (Z79.899) Active confirmed Problem Gastroesophageal reflux disease (391895202) Gastroesophageal reflux disease, unspecified whether esophagitis present (K21.9) Active confirmed Plan Of Treatment Future Test Test Name Order Date COLONOSCOPY 08/18/2012 COLONOSCOPY 04/20/2023 Insurance Providers Payer Name Payer Address Payer Phone Subscriber Number Group Number Insured Name Patient Relationship to Insured Coverage Start Date Coverage End Date MEDICARE OF [place] [address] [place] [address] [phone] [id number] BERYL DUNNE Self - patient is the insured [employer] [address] [place] [address] [phone] [id number] BERYL DUNNE Self - patient is the insured Medical (General) History Medical History History ICD Code Colonoscopy 11/03/12, normal, ten-year fol lowup diverticulosis enviromental allergies arthritis Hypertension Gastroesophageal reflux dise ase, EGD 01/19, no H. pylori or Crooks's esophagus. 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
[2025-07-06 08:40] LABS: Hematocrit 40.9 % (37.0-47.0); Hemoglobin 13.1 g/dl (12.0-16.0); Imm Gran Abs Auto 0.04 X10*3/uL (0.00-0.03); Imm Gran Pct Auto 0.4 % (0.0-0.4); Lymphocytes Absolute Auto 2.3 X10*3/uL (1.2-4.9); Mean Corpuscular HGB Conc 32.0 g/dl (31.0-35.0); Mean Corpuscular Hemoglobin 27.8 pg (27.0-33.0); Mean Corpuscular Volume 86.8 fL (80.0-98.0); NRBC Abs Auto 0.000 X10*3/uL (0.0-0.012); NRBC Pct Auto 0.0 /100WBC (0.0-0.2); Platelet Count 442 X10*3/uL (160-400); Red Blood Count 4.71 X10*6/uL (4.20-5.50); White Blood Count 9.2 X10*3/uL (4.8-10.8)
[2025-07-06 09:20] LABS: Alanine Aminotransferase 24 U/L (0-31); Albumin Level 4.1 g/dL (3.5-5.0); Alkaline Phosphatase 109 U/L (39-117); Anion Gap 10 (12-20); Aspartate Amino Transferase 26 U/L (5-31); Blood Urea Nitrogen 15 mg/dL (9-16); Calcium 9.0 mg/dL (8.4-10.2); Carbon Dioxide 25 mmol/L (22-29); Chloride 110 mmol/L (96-108); Cholesterol 164 mg/dL (<200); Estimated Glomerular Filt Rate > 60; HDL Cholesterol 54 mg/dL (>40); Potassium 4.1 mmol/L (3.3-5.1); Sodium 141 mmol/L (135-145); Total Protein 6.9 g/dL (6.5-8.0); Triglycerides 93 mg/dL (<150)
== END 2025-07-06 08:20 | disposition home or self-care (01) ==
LOC: HO.LAB 08:19
PROVIDERS: PCP Internal Medicine; Visit Provider Internal Medicine
DX: I10 Essential (primary) hypertension (principal); K21.9 Gastro-esophageal reflux disease without esophagitis; E78.9 Disorder of lipoprotein metabolism, unspecified; M85.80 Other specified disorders of bone density and structure, unspecified site; K58.0 Irritable bowel syndrome with diarrhea
CPT/HCPCS: 36415; 80053; 80061; 85025